=== PATIENT | male | born 1945 | race Caucasian/White ===

== ENCOUNTER 2018-10-22 19:38 | Inpatient (IN) | payer OTHER, MEDICARE ==
[~2018-10-22] VITALS: Ht 182.9 cm; Wt 110.5 kg
[~2018-10-22 19:38] MED LIST: ASPI325; ASPI325 PO; BUDE200IP IH; BUPR100; BUPR150ER PO; CALCAVITDA PO; CARB25; CEPH500 PO; DOXA4; FOLI1; GABA300; GALA4; GALA4 PO; HYDACE5; HYDACE5 PO; HYDSUL200 PO; INSUASPI SUBQ; LIDO5TP TOP; LORA.5 PO; LOSA25 PO; METF500; METH5; METO50; METPHE5; METTREX2.5; METTREX2.5 PO; MULVITMIND PO; NORT10 PO; NORT25 PO; NORT50; NYST100P TOP; SIMV40
[2018-10-22 20:33] LABS: BASOPHILS ABSOLUTE AUTO 0.01 K/mm3 (0.00-0.23); BASOPHILS PERCENT AUTO 0 % (0-2); EOSINOPHILS PERCENT AUTO 1 % (0-6); Hematocrit 38.6 % (37.0-53.0); Hemoglobin 12.2 g/dL (13.5-17.5); IMMATURE GRAN ABSOLUTE AUTO 0.06 K/mm3 (0.00-0.10); IMMATURE GRAN PERCENT AUTO 1 % (0-1); LYMPHOCYTES ABSOLUTE AUTO 0.57 K/mm3 (0.84-5.20); LYMPHOCYTES PERCENT AUTO 7 % (21-46); MONOCYTES ABSOLUTE AUTO 0.64 K/mm3 (0.16-1.47); MONOCYTES PERCENT AUTO 8 % (4-13); Mean Corpuscular HGB 28.9 pg (26.0-34.0); Mean Corpuscular HGB Conc 31.6 g/dL (31.5-36.5); Mean Corpuscular Volume 92 fL (80-100); Mean Platelet Volume 12.3 fL (9.1-12.4); NEUTROPHILS ABSOLUTE AUTO 7.06 K/mm3 (1.96-9.15); NEUTROPHILS PERCENT AUTO 84 % (41-73); Platelet Count 102 K/mm3 (150-400); RDW Coefficient Variation 13.9 % (11.7-14.2); RDW Standard Deviation 46.6 fL (35.1-46.3); Red Blood Cell Count 4.22 M/mm3 (4.30-5.90); White Blood Cell Count 8.44 K/mm3 (4.00-11.30)
[2018-10-22] MEDS ORDERED: ALBU3IS PO (20:45)
[2018-10-22] MEDS ORDERED: Advair Hfa 230-12 GM (20:50)
[2018-10-22] MEDS ORDERED: LIDO5TO (20:51)
[2018-10-22] MEDS ORDERED: PRED10 PO (20:56)
[2018-10-22 20:57] LABS: Alanine Aminotransfer (ALT/SGP 31 U/L (12-78); Albumin, Blood 2.6 g/dL (3.4-5.0); Albumin/Globulin Ratio 0.8 (0.8-1.8); Alk Phos 80 U/L (50-136); Anion Gap 8 mmol/L (6-16); Aspartate Aminotrans (AST/SGOT 23 U/L (12-37); Bilirubin, Total 0.5 mg/dL (0.1-1.0); Blood Urea Nitrogen 14 mg/dL (8-24); CO2, Blood 27 mmol/L (21-32); Chloride, Blood 106 mmol/L (98-108); Creatinine, Blood 1.08 mg/dL (0.60-1.20); Globulin, Blood 3.4 g/dL (2.2-4.0); Glomerular Filtration Rate >60 (60-); Glucose, Blood 217 mg/dL (70-99); Potassium, Blood 3.7 mmol/L (3.5-5.5); Sodium, Blood 141 mmol/L (136-145); Troponin I 0.158 ng/mL (0.000-0.040)
[2018-10-22] MEDS ORDERED: **INCOMPLETE MED REC (21:46)
[2018-10-22] MEDS ORDERED: ABAT250V SC (22:13)
[2018-10-22] MEDS ORDERED: ACET325S PO (22:14)
[2018-10-22] MEDS ORDERED: COMBIVENT RESPIM4 GM INH (22:16)
[2018-10-22] MEDS ORDERED: ATOR20 PO (22:18)
[2018-10-22] MEDS ORDERED: ASCO500 PO (22:18)
[2018-10-22] MEDS ORDERED: ELIQUIS5 MG PO (22:18)
[2018-10-22] MEDS ORDERED: BENZ100A PO (22:19)
[2018-10-22] MEDS ORDERED: BUSP10 PO (22:20)
[2018-10-22] MEDS ORDERED: CLON.1 PO (22:21)
[2018-10-22] MEDS ORDERED: CLOT10 PO (22:22)
[2018-10-22] MEDS ORDERED: Desowen60 GM TOP (22:24)
[2018-10-22] MEDS ORDERED: Ferrous Sulfat325 M2 PO (22:25)
[2018-10-22] MEDS ORDERED: Carac30 GM TOP (22:26)
[2018-10-22] MEDS ORDERED: Flonase 0.05% N16 GM (22:28)
[2018-10-22] MEDS ORDERED: FOLI1 PO (22:28)
[2018-10-22] MEDS ORDERED: GABA600 PO ×2 (22:29→22:30)
[2018-10-22 22:31] LABS: Influenza A Negative (NEGATIVE); Influenza B Negative (NEGATIVE)
[2018-10-22] MEDS ORDERED: INSULANPEN SC (22:31)
[2018-10-22] MEDS ORDERED: LIDOCAINE HCL120 GM TOP (22:34)
[2018-10-22] MEDS ORDERED: METO25 PO (22:35)
[2018-10-22] MEDS ORDERED: Hair, Skin & N1 EACH PO (22:35)
[2018-10-22] MEDS ORDERED: Ofloxacin5 M1 BOTHEYES (22:36)
[2018-10-22] MEDS ORDERED: OMEPRAZOLE MAGN20 MG PO (22:37)
[2018-10-22] MEDS ORDERED: OXYC5 PO (22:37)
[2018-10-22] MEDS ORDERED: PREDNISOLONE ACE5 ML BOTHEYES (22:38)
[2018-10-22] MEDS ORDERED: SENN187 PO (22:39)
[2018-10-22] MEDS ORDERED: TAMS.4ER PO (22:40)
[2018-10-22] MEDS ORDERED: THEO400ER PO (22:40)
[2018-10-22] MEDS ORDERED: VENL75ER PO (22:42)
[2018-10-22] MEDS ORDERED: Ultra Mide 25120 ML TOP (22:42)
[2018-10-23 04:19] LABS: Hematocrit 38.4 % (37.0-53.0); Hemoglobin 12.1 g/dL (13.5-17.5); Mean Corpuscular HGB 28.1 pg (26.0-34.0); Mean Corpuscular HGB Conc 31.5 g/dL (31.5-36.5); Mean Platelet Volume 12.3 fL (9.1-12.4); Platelet Count 92 K/mm3 (150-400); RDW Coefficient Variation 13.8 % (11.7-14.2); RDW Standard Deviation 45.3 fL (35.1-46.3); Red Blood Cell Count 4.31 M/mm3 (4.30-5.90); White Blood Cell Count 6.84 K/mm3 (4.00-11.30)
[2018-10-23 04:24] LABS: Mean Corpuscular Volume 89 fL (80-100)
[2018-10-23 04:55] LABS: Troponin I 0.146 ng/mL (0.000-0.040)
[2018-10-23 04:57] LABS: Alanine Aminotransfer (ALT/SGP 29 U/L (12-78); Albumin, Blood 2.6 g/dL (3.4-5.0); Albumin/Globulin Ratio 0.7 (0.8-1.8); Alk Phos 85 U/L (50-136); Anion Gap 10 mmol/L (6-16); Aspartate Aminotrans (AST/SGOT 23 U/L (12-37); Bilirubin, Total 0.7 mg/dL (0.1-1.0); Blood Urea Nitrogen 20 mg/dL (8-24); Bun/Creatinine Ratio 16.1 (12.0-20.0); CO2, Blood 27 mmol/L (21-32); Calcium, Blood 8.3 mg/dL (8.5-10.1); Chloride, Blood 105 mmol/L (98-108); Creatinine, Blood 1.24 mg/dL (0.60-1.20); Globulin, Blood 3.6 g/dL (2.2-4.0); Glomerular Filtration Rate >60 (60-); Glucose, Blood 335 mg/dL (70-99); Potassium, Blood 3.7 mmol/L (3.5-5.5); Sodium, Blood 142 mmol/L (136-145); Total Protein, Blood 6.2 g/dL (6.4-8.2)
--- NOTE | 2018-10-23 05:45 | NUR ---
SHIFT SUMMARY PT SLEEPING IN ROOM COMFORTABLY. NO ACUTE CHANGES IN STATUS SINCE ARRIVAL TO UNIT. DENIES ANY PAIN AFTER THIS TIME. PT WAS MEDICATED FOR NEUROPATHY PAIN IN BILATE GREAT TOES W/ TOPICAL OINTMENT. PT FAMILY REPORTS WILL BRING OWN OINTMENT FROM HOME TODAY. RESP EVEN AND UNLABORED IN 2.5L NC. W/ PROD COUGH. PT UNABLE TO OBTAIN SPUTUM SAMPLE AT THIS TIME HOWEVER. PT IS SBA, BUT DOES NOT CALL APPROPRIATELY FOR ASSIST. BED ALARM IN ON FOR SAFETY. CALL LIGHT IN REACH. PT REQUIRES REMINDING TO USE CALL LIGHT.
--- NOTE | 2018-10-23 08:53 | NUR ---
BEGINNING OF SHIFT Assumed care of pt at 0700. Report received from Melodie VELASCO. Pt on 3 LPM NC at time of report. Titrated to room air. Pt tolerated titration well and maintained O2 sats between 95% and 99% on room air. Pt's daughter called and wanted an update on the pt's condition. Pt gave verbal consent for this nurse to speak to the daughter. Nicotine patch applied to right shoulder. Pt states he has been working on smoking cessation and plans to complete this goal during this hospital stay. Bed alarm applied. Bed in lowest position. Call light in reach. Pt is medical floor status without telemetry at this time.
[2018-10-23 09:11] LABS: Adenovirus Not Detected (NOT DETECT); Bordetella pertussis Not Detected (NOT DETECT); Chlamydophila pneumoniae Not Detected (NOT DETECT); Coronavirus 229E Not Detected (NOT DETECT); Coronavirus HKU1 Not Detected (NOT DETECT); Coronavirus NL63 Not Detected (NOT DETECT); Coronavirus OC43 Not Detected (NOT DETECT); Human Metapneumovirus Not Detected (NOT DETECT); Human Rhinovirus/Enterovirus Not Detected (NOT DETECT); Influenza A Not Detected (NOT DETECT); Influenza A/2009-H1 Not Detected (NOT DETECT); Influenza A/H1 Not Detected (NOT DETECT); Influenza A/H3 Not Detected (NOT DETECT); Influenza B Not Detected (NOT DETECT); Mycoplasma pneumoniae Not Detected (NOT DETECT); Parainfluenza Virus 1 Not Detected (NOT DETECT); Parainfluenza Virus 2 Not Detected (NOT DETECT); Parainfluenza Virus 3 Not Detected (NOT DETECT); Parainfluenza Virus 4 Not Detected (NOT DETECT); Respiratory Syncytial Virus Not Detected (NOT DETECT)
--- NOTE | 2018-10-23 10:07 | NUR ---
echocardiogram completed
[2018-10-23 12:46] LABS: Troponin I 0.074 ng/mL (0.000-0.040)
--- NOTE | 2018-10-23 13:19 | NUR ---
CALL PLACED TO DR MENDIETA Call placed to Dr Mendieta at 1155 regarding results of CBG. No new orders given. This RN asked if provider would like a recheck before 1630. Proivder stated this would not be necessary.
--- NOTE | 2018-10-23 15:41 | NUR ---
TRANSFER TO MEDICAL FLOOR Pt transferred to room 313. Report called to medical floor nurse. Chart, medications, and belongings transferred with patient. This RN called pt's daughter to notify her of the transfer.
--- NOTE | 2018-10-23 20:38 | NUR ---
1530- PT TX FROM PCU 7 TO ROOM 313 AT 1525- A/O X4, VERBAL AND PLEASANT. ON ROOM AIR, 96%SATS, RESP EVEN AND UNLABORED. CONT TO HAVE SUGAR 400'S COVERED WITH MED SS INSULIN. DR WAS AWARE OF EARLIER SUGAR IN THE 400'S SO DIDN'T CALL- WILL SEE IF LONG ACTING CATCHES UP BY HS. NIGHT RN AWARE.
--- NOTE | 2018-10-24 04:53 | NUR ---
SHIFT SUMMARY THE PATIENT PRESENTED THIS SHIFT WAS ELEVATED B/P AND RECEIVED HYDRALAZINE PER ORDERES. THE PATIENT IS A&O X4, WITH LUNGS SOUNDS THAT WERE COARSE AND DIM AT THE BASES. THE PATIENT HAS ASKED FOR COUGH MEDICATION TWICE THIS SHIFT. THE PATIENT SETTLED DOWN AND WENT TO SLEEP AROUND MIDNIGHT. THE PATIENT IS SLEEPING AT THIS TIME, WILL CONTINUE TO MONITOR.
--- NOTE | 2018-10-24 10:05 | NUR ---
Pt gave [facility] permission to provide care 10/24/18.
--- NOTE | 2018-10-24 14:50 | NUR ---
CONTINUE HOME MEDICATION OF ORENICA UPON D/C PER DR. FUNG VERBAL ORDER.
[2018-10-24] MEDS ORDERED: Guaifenesin-Co118 ML PO (15:12)
[2018-10-24] MEDS ORDERED: Prednisone20 MG PO (15:13)
[2018-10-24] MEDS ORDERED: NICO21TP TOP (15:13)
[2018-10-24] MEDS ORDERED: FURO40 PO (15:16)
--- NOTE | 2018-10-24 18:34 | NUR ---
1540 PATIENT TO DISCHARGE HOME. IV REMOVED WITH NO SS OF INFECTION NOTED. NURSE WENT OVER NEW MEDS AND EDUCATED PATIENTS DAUGHTER REGARDING NEW MEDS. CALLED INTO PHARMACY OF CHOICE. PATIENT TAKEN DOWN BY WC TO CAR AND TAKEN HOME.
== END 2018-10-24 16:55 | disposition home or self-care (01) | DRG 291 ==
LOC: ER 19:38 → PCU 23:51 → MEDS 10-23 15:27
PROVIDERS: Emergency Medicine; ADMIT Internal Medicine
PROC: 5A09357 Assistance with Respiratory Ventilation, Less than 24 Consecutive Hours, Continuous Positive Airway Pressure (ICD-10-PCS; principal; 2018-10-22)
DX: I11.0 Hypertensive heart disease with heart failure (principal); J96.01 Acute respiratory failure with hypoxia; J44.1 Chronic obstructive pulmonary disease with (acute) exacerbation; I50.33 Acute on chronic diastolic (congestive) heart failure; N40.0 Benign prostatic hyperplasia without lower urinary tract symptoms; I25.10 Atherosclerotic heart disease of native coronary artery without angina pectoris; E11.9 Type 2 diabetes mellitus without complications; F32.9 Major depressive disorder, single episode, unspecified; I16.0 Hypertensive urgency; I35.0 Nonrheumatic aortic (valve) stenosis; K21.9 Gastro-esophageal reflux disease without esophagitis; M06.9 Rheumatoid arthritis, unspecified; Z88.0 Allergy status to penicillin; Z88.2 Allergy status to sulfonamides; F17.210 Nicotine dependence, cigarettes, uncomplicated; Z95.1 Presence of aortocoronary bypass graft; G47.33 Obstructive sleep apnea (adult) (pediatric); F43.10 Post-traumatic stress disorder, unspecified; Z91.19 Patient's noncompliance with other medical treatment and regimen; E78.5 Hyperlipidemia, unspecified; Z95.0 Presence of cardiac pacemaker
CPT/HCPCS: 36415; 71046; 80053; 82550; 82947; 83605; 83880; 84145; 84484; 85025; 85027; 87040; 87070; 87205; 87486; 87581; 87633; 87798; 87804; 93005; 93010; 93306; 94640; 94760; 96361; 96365; 99285-25; J0360; J0456; J0696; J1940; J2930; J7050; J7120

== ENCOUNTER 2018-11-13 22:37 | Emergency (ER) | payer OTHER, MEDICARE ==
[~2018-11-13] VITALS: Ht 177.8 cm; Wt 77.1 kg
[~2018-11-13 22:37] MED LIST changes: +**INCOMPLETE MED REC; +ABAT250V SC; +ACET325S PO; +ALBU3IS PO; +ASCO500 PO; +ATOR20 PO; +Advair Hfa 230-12 GM; +BENZ100A PO; +BUSP10 PO; +CLON.1 PO; +CLOT10 PO; +COMBIVENT RESPIM4 GM INH; +Carac30 GM TOP; +Desowen60 GM TOP; +ELIQUIS5 MG PO; +FOLI1 PO; +FURO40 PO; +Ferrous Sulfat325 M2 PO; +Flonase 0.05% N16 GM; +GABA600 PO; +Guaifenesin-Co118 ML PO; +Hair, Skin & N1 EACH PO; +INSULANPEN SC; +LIDO5TO; +LIDOCAINE HCL120 GM TOP; +METO25 PO; +NICO21TP TOP; +OMEPRAZOLE MAGN20 MG PO; +OXYC5 PO; +Ofloxacin5 M1 BOTHEYES; +PRED10 PO; +PREDNISOLONE ACE5 ML BOTHEYES; +Prednisone20 MG PO; +SENN187 PO; +TAMS.4ER PO; +THEO400ER PO; +Ultra Mide 25120 ML TOP; +VENL75ER PO
[2018-11-14 06:05] LABS: PCO2 Arterial 38.1 mmHg (35-45); PO2 Arterial 75.4 mmHg (80-100); pH Blood Arterial 7.42 (7.35-7.45)
[2018-11-14 06:35] LABS: Albumin, Blood 2.7 g/dL (3.4-5.0); Albumin/Globulin Ratio 0.9 (0.8-1.8); Bilirubin, Total 0.5 mg/dL (0.1-1.0); Calcium, Blood 7.8 mg/dL (8.5-10.1); Creatinine, Blood 1.37 mg/dL (0.60-1.20); Potassium, Blood 4.3 mmol/L (3.5-5.5); Total Protein, Blood 5.7 g/dL (6.4-8.2); Troponin I 0.058 ng/mL (0.000-0.040)
[2018-11-14 06:41] LABS: BASOPHILS ABSOLUTE AUTO 0.02 K/mm3 (0.00-0.23); BASOPHILS PERCENT AUTO 0 % (0-2); EOSINOPHILS ABSOLUTE AUTO 0.01 K/mm3 (0.00-0.68); EOSINOPHILS PERCENT AUTO 0 % (0-6); Hematocrit 36.9 % (37.0-53.0); Hemoglobin 12.2 g/dL (13.5-17.5); IMMATURE GRAN ABSOLUTE AUTO 0.26 K/mm3 (0.00-0.10); IMMATURE GRAN PERCENT AUTO 2 % (0-1); LYMPHOCYTES ABSOLUTE AUTO 0.37 K/mm3 (0.84-5.20); LYMPHOCYTES PERCENT AUTO 2 % (21-46); MONOCYTES ABSOLUTE AUTO 0.23 K/mm3 (0.16-1.47); MONOCYTES PERCENT AUTO 2 % (4-13); Mean Corpuscular HGB 29.3 pg (26.0-34.0); Mean Corpuscular HGB Conc 33.1 g/dL (31.5-36.5); Mean Corpuscular Volume 89 fL (80-100); Mean Platelet Volume 13.2 fL (9.1-12.4); NEUTROPHILS ABSOLUTE AUTO 14.25 K/mm3 (1.96-9.15); NEUTROPHILS PERCENT AUTO 94 % (41-73); Platelet Count 84 K/mm3 (150-400); RDW Standard Deviation 45.4 fL (35.1-46.3); Red Blood Cell Count 4.17 M/mm3 (4.30-5.90); White Blood Cell Count 15.14 K/mm3 (4.00-11.30)
== END 2018-11-14 03:52 | disposition home or self-care (01) ==
LOC: ER 22:37
PROVIDERS: Emergency Medicine
DX: J06.9 Acute upper respiratory infection, unspecified (principal)
CPT/HCPCS: 36600; 80053; 82803; 83605; 83880; 84484; 85025; 96374; 99285-25; J2543

== ENCOUNTER 2019-05-06 09:08 | Emergency (ER) | payer OTHER, MEDICARE ==
[~2019-05-06] VITALS: Ht 182.9 cm; Wt 113.4 kg
[2019-05-06] MEDS ORDERED: AMLO10 PO (09:40)
[2019-05-06] MEDS ORDERED: ALBU90OI INH (09:40)
[2019-05-06] MEDS ORDERED: CARV3.125 PO (09:41)
[2019-05-06] MEDS ORDERED: TRAZ50 PO (09:41)
== END 2019-05-06 11:38 | disposition home or self-care (01) ==
LOC: ER 09:08
DX: R04.0 Epistaxis (principal); E11.9 Type 2 diabetes mellitus without complications; I10 Essential (primary) hypertension; Z88.0 Allergy status to penicillin; Z88.2 Allergy status to sulfonamides; Z79.01 Long term (current) use of anticoagulants; Z79.899 Other long term (current) drug therapy; Z79.4 Long term (current) use of insulin
CPT/HCPCS: 99283

== ENCOUNTER 2019-06-23 00:31 | Emergency (ER) | payer MEDICARE ==
[~2019-06-23] VITALS: Ht 182.9 cm; Wt 113.4 kg
[~2019-06-23 00:31] MED LIST changes: +ALBU90OI INH; +AMLO10 PO; +CARV3.125 PO; +TRAZ50 PO
[2019-06-23] MEDS ORDERED: PANT20 PO (01:03)
[2019-06-23] MEDS ORDERED: CLOP75 PO (01:04)
[2019-06-23 02:20] LABS: Calcium, Ionized (POC) 1.19 mmol/L (1.10-1.46); Chloride (POC) 105 mmol/L (98-108); Creatinine (POC) 1.5 mg/dL (0.8-1.3); Glucose (ISTAT POC) 74 mg/dL (70-99); Hemoglobin (POC) 10.2 g/dL (13.5-17.5); Potassium (POC) 3.6 mmol/L (3.5-5.5); Sodium (POC) 142 mmol/L (135-148); Total CO2 (POC) 26 mmol/L (21-32)
== END 2019-06-23 04:19 | disposition home or self-care (01) ==
LOC: ER 00:31
PROVIDERS: Emergency Medicine
DX: H57.11 Ocular pain, right eye (principal); H54.61 Unqualified visual loss, right eye, normal vision left eye; I10 Essential (primary) hypertension; E11.9 Type 2 diabetes mellitus without complications; F17.200 Nicotine dependence, unspecified, uncomplicated; Z88.2 Allergy status to sulfonamides; Z88.0 Allergy status to penicillin; Z88.5 Allergy status to narcotic agent; Z79.899 Other long term (current) drug therapy; Z79.4 Long term (current) use of insulin; Z79.01 Long term (current) use of anticoagulants; Z79.02 Long term (current) use of antithrombotics/antiplatelets
CPT/HCPCS: 36415; 70480; 80047; 85014; 99284-25

== ENCOUNTER → 2020-04-19 | Outpatient (CLI) | payer MEDICARE ==
[~2020-04-19] MED LIST changes: -ABAT250V SC; +ACET325 PO; +AQUORAL10 ML MM; +BASAGLAR K100 UNIT/1 SC; +CLOP75 PO; -COMBIVENT RESPIM4 GM INH; +DOCU100 PO; +DOXY100 PO; +Duoneb 2.5-0.5 M3 ML INH; +Duoneb 2.5-0.5 M3 ML NEB; +FERSU300 PO; -Ferrous Sulfat325 M2 PO; +GABA300 PO; +Humalog100 UNIT/1 SC; +Keflex500 MG PO; +LIDOCAINE5 GM TOP; +Loratadine10 MG PO; +MELA3 PO; +NOVOLOG FL100 UNIT/3 SC; +Nicoderm Cq1 EAC1 TOP; +ONDA4ODT MM; +ORENCIA125 MG/1 M SC; +PANT40 PO; +POTCHL20ER PO; +PRINIVIL5 M1 PO; +Percocet 5-3251 EACH PO; +ROXICODONE5 MG PO; +SYMBICORT 160-4.6 GM INH; +XARELTO20 MG; +XARELTO20 MG PO
[2020-04-19 12:16] LABS: BASOPHILS ABSOLUTE AUTO 0.01 K/mm3 (0.00-0.23); BASOPHILS PERCENT AUTO 0 % (0-2); EOSINOPHILS ABSOLUTE AUTO 0.13 K/mm3 (0.00-0.68); EOSINOPHILS PERCENT AUTO 2 % (0-6); Hematocrit 31.9 % (37.0-53.0); Hemoglobin 9.5 g/dL (13.5-17.5); IMMATURE GRAN ABSOLUTE AUTO 0.02 K/mm3 (0.00-0.10); IMMATURE GRAN PERCENT AUTO 0 % (0-1); LYMPHOCYTES ABSOLUTE AUTO 1.23 K/mm3 (0.84-5.20); LYMPHOCYTES PERCENT AUTO 23 % (21-46); MONOCYTES PERCENT AUTO 9 % (4-13); Mean Corpuscular HGB 26.2 pg (26.0-34.0); Mean Corpuscular HGB Conc 29.8 g/dL (31.5-36.5); Mean Corpuscular Volume 88 fL (80-100); Mean Platelet Volume 12.6 fL (9.1-12.4); NEUTROPHILS ABSOLUTE AUTO 3.55 K/mm3 (1.96-9.15); NEUTROPHILS PERCENT AUTO 65 % (41-73); Platelet Count 105 K/mm3 (150-400); RDW Coefficient Variation 16.2 % (11.7-14.2); RDW Standard Deviation 52.8 fL (35.1-46.3); Red Blood Cell Count 3.63 M/mm3 (4.30-5.90); White Blood Cell Count 5.44 K/mm3 (4.00-11.30)
[2020-04-19 12:23] LABS: Bun/Creatinine Ratio 17.4 (12.0-20.0); Calcium, Blood 8.3 mg/dL (8.5-10.1); Creatinine, Blood 1.32 mg/dL (0.60-1.20); Potassium, Blood 3.8 mmol/L (3.5-5.5)
== END | disposition home or self-care (01) ==
LOC: LAB RH 10:59 → EDSTATUS 15:34
PROVIDERS: Family Medicine
DX: E11.22 Type 2 diabetes mellitus with diabetic chronic kidney disease (principal); N18.3 Chronic kidney disease, stage 3 (moderate); I50.9 Heart failure, unspecified
CPT/HCPCS: 80048; 85025

== ENCOUNTER 2020-05-02 17:00 | Inpatient (IN) | payer OTHER, MEDICARE ==
[~2020-05-02] VITALS: Ht 182.9 cm; Wt 90.8 kg
[~2020-05-02 17:00] MED LIST changes: -AQUORAL10 ML MM; -DOXY100 PO; -LIDOCAINE5 GM TOP; -Percocet 5-3251 EACH PO; -ROXICODONE5 MG PO; -XARELTO20 MG; -XARELTO20 MG PO
[2020-05-02 17:39] LABS: BASOPHILS ABSOLUTE AUTO 0.01 K/mm3 (0.00-0.23); BASOPHILS PERCENT AUTO 0 % (0-2); EOSINOPHILS ABSOLUTE AUTO 0.17 K/mm3 (0.00-0.68); EOSINOPHILS PERCENT AUTO 3 % (0-6); Hematocrit 31.4 % (37.0-53.0); Hemoglobin 9.4 g/dL (13.5-17.5); IMMATURE GRAN ABSOLUTE AUTO 0.02 K/mm3 (0.00-0.10); IMMATURE GRAN PERCENT AUTO 0 % (0-1); LYMPHOCYTES ABSOLUTE AUTO 1.12 K/mm3 (0.84-5.20); LYMPHOCYTES PERCENT AUTO 17 % (21-46); MONOCYTES ABSOLUTE AUTO 0.63 K/mm3 (0.16-1.47); MONOCYTES PERCENT AUTO 9 % (4-13); Mean Corpuscular HGB 26.3 pg (26.0-34.0); Mean Corpuscular HGB Conc 29.9 g/dL (31.5-36.5); Mean Corpuscular Volume 88 fL (80-100); Mean Platelet Volume 12.8 fL (9.1-12.4); NEUTROPHILS ABSOLUTE AUTO 4.83 K/mm3 (1.96-9.15); NEUTROPHILS PERCENT AUTO 71 % (41-73); Platelet Count 136 K/mm3 (150-400); RDW Standard Deviation 48.4 fL (35.1-46.3); Red Blood Cell Count 3.57 M/mm3 (4.30-5.90); White Blood Cell Count 6.78 K/mm3 (4.00-11.30)
[2020-05-02 17:48] LABS: Bun/Creatinine Ratio 19.2 (12.0-20.0); Creatinine, Blood 1.25 mg/dL (0.60-1.20); Potassium, Blood 4.5 mmol/L (3.5-5.5)
[2020-05-02 22:00] LABS: International Normalized Ratio 1.05; Prothrombin Time Results 11.2 Sec (9.7-11.5)
[2020-05-02 22:19] LABS: Creatine Kinase MB 1.9 ng/mL (0.0-3.6); Creatine Kinase MB Index 6.3 (0.0-4.0)
--- NOTE | 2020-05-03 00:04 | NUR ---
ARRIVAL TO UNIT. PT ARRIVED VIA GURNEY AT APPROX 2250, SLIDE TO BED WITH ASSIST. PT AA0X4, HELPING WITH REPOSITIONING. ABLE TO LIFT SELF WELL USING R FOOT. DENIES PAIN AT THIS TIME EXCEPT WHEN UPPER R CALF IS PALPATED. NO REDNESS NOTED ON CALF. FOOT AND CALF WERE WARM TO TOUCH. STUMP SOCK IN PLACE ON LLE DRESSING CHANGED OVER SMALL SORE AT THE END OF THE STUMP. SCATTERED BRUISING T/O PT REPORTS NORMAL. DR NERI IN TO SEE PT AT APPROX 1130. AWAITING ORDERS AND WILL ADMINISTER DIRECTED. PT ORIENTED TO UNIT CALL LIGHT IN REACH. CURRENTLY RESTING IN LOWER FOWLERS.
--- NOTE | 2020-05-03 04:40 | NUR ---
SHIFT SUMMARY NO ACUTE CHANGES SINCE ARRIVAL TO UNIT. PT HAS DENIED PAIN IN CALF AND FOOT EXCEPT ON PALPATION. PT HAS BEEN REPOSITIONING SELF IN BED FREQUENTLY. USES CALL LIGHT APPROPRIATLY. TOLERATING PO. NO NAUSEA DURING SHIFT. NO NEW DRAINAGE SEEN ON EITHER WOUND. PT HAS BEEN SLEEPING IN BED DURING SHIFT. IV FLUIDS AND ABX INFUSING PER EMAR. PLAN IS FOR VENOUS DUPLEX OF RLE IN THE AM AND TO CONTINUE ABX.
[2020-05-03 05:30] LABS: BASOPHILS ABSOLUTE AUTO 0.01 K/mm3 (0.00-0.23); BASOPHILS PERCENT AUTO 0 % (0-2); EOSINOPHILS ABSOLUTE AUTO 0.19 K/mm3 (0.00-0.68); EOSINOPHILS PERCENT AUTO 4 % (0-6); Hematocrit 29.6 % (37.0-53.0); Hemoglobin 8.9 g/dL (13.5-17.5); IMMATURE GRAN ABSOLUTE AUTO 0.01 K/mm3 (0.00-0.10); IMMATURE GRAN PERCENT AUTO 0 % (0-1); LYMPHOCYTES ABSOLUTE AUTO 1.12 K/mm3 (0.84-5.20); LYMPHOCYTES PERCENT AUTO 21 % (21-46); MONOCYTES ABSOLUTE AUTO 0.52 K/mm3 (0.16-1.47); MONOCYTES PERCENT AUTO 10 % (4-13); Mean Corpuscular HGB 26.6 pg (26.0-34.0); Mean Corpuscular HGB Conc 30.1 g/dL (31.5-36.5); Mean Corpuscular Volume 88 fL (80-100); Mean Platelet Volume 12.7 fL (9.1-12.4); NEUTROPHILS PERCENT AUTO 66 % (41-73); Platelet Count 125 K/mm3 (150-400); RDW Standard Deviation 48.8 fL (35.1-46.3); Red Blood Cell Count 3.35 M/mm3 (4.30-5.90); White Blood Cell Count 5.45 K/mm3 (4.00-11.30)
[2020-05-03 05:53] LABS: Albumin, Blood 2.3 g/dL (3.4-5.0); Albumin/Globulin Ratio 0.7 (0.8-1.8); Bilirubin, Total 0.4 mg/dL (0.1-1.0); Bun/Creatinine Ratio 15.4 (12.0-20.0); Calcium, Blood 8.4 mg/dL (8.5-10.1); Creatinine, Blood 1.43 mg/dL (0.60-1.20); Globulin, Blood 3.4 g/dL (2.2-4.0); Potassium, Blood 4.3 mmol/L (3.5-5.5); Total Protein, Blood 5.7 g/dL (6.4-8.2)
--- NOTE | 2020-05-03 06:32 | NUR ---
SPOKE TO DTR ON PHONE WHO STATED SHE IS ONE OF [facility] PRIMARY CAREGIVERS, PT CONFIRMED THAT DTR HELPS WITH MAJORITY OF HIS MEDICAL CARE. PT AND DTR BOTH EXPRESSED DESIRE TO BE PRESENT TO SPEAK WITH DOCTOR CONCERNING THE PATIENTS PLAN OF CARE AND ANY CHANGES TO MEDICAL CARE. DTR EXPRESSED CONCERN ABOUT MEDICATION ORDERS RECEIVED UPON DISCHARGE FROM PREVIOUS HOSPITAL STAY AND WISHES TO SPEAK WITH DOCTOR ABOUT PTS MEDICATIONS. WILL PASS ON TO ONCOMING SHIFT TO CALL [facility] FOR [facility], AND SPOKE TO CHARGE NURSE R/T DTR AND PT'S WISHES TO BE PRESENT FOR MEDICAL DECISIONS.
[2020-05-03] MEDS ORDERED: LIDOCAINE5 GM TOP (14:42)
[2020-05-03] MEDS ORDERED: MELA3 PO (14:42)
[2020-05-03] MEDS ORDERED: Percocet 5-3251 EACH PO (14:43)
[2020-05-03] MEDS ORDERED: AQUORAL10 ML MM (14:45)
--- NOTE | 2020-05-03 17:38 | NUR ---
SHIFT SUMMARY MEDICATED FOR PAIN IN RIGHT ANKLE/GREAT TOE X1 THIS SHIFT. PT HAS BEEN SLEEPING A LOT OF THE SHIFT. BLOOD SUGARS WITHIN NORMAL RANGE. BAG OF IVF INFUSED AND PT SALINE LOCKED NOW. PT UP TO BS WITH ONE ASSIST AND FWW/GAIT BELT. PT TOLERATED WELL. DRESSING TO LEFT STUMP INTACT. RIGHT GREAT TOE WITH WOUND THAT IS DRY. DR. COLLINS INTO SEE PT THIS AFTERNOON AND PLANS TO DO SUGERY AND AMPUTATE TOE TOMORROW. PT TO BE NPO AFTER MIDNIGHT. PT IS AWARE. NO ACUTE CHANGES AT THIS TIME. CALL LIGHT IN REACH. WILL CONTINUE TO MONITOR AND REPORT TO ONCOMING RN.
--- NOTE | 2020-05-03 23:11 | NUR ---
CALL TO HOSPITALIST: RECEIVED CALL FROM LAB STATING 1 BOTTLE FROM BLOOD CULTURE SET GROWING GRAM POSITIVE COCCI IN CLUSTERS. PT CURRENTLY ON CLEOCIN IV Q8HRS. INFORMED ISTRATE OF ABOVE INFO. NO NEW ORDERS AT THIS TIME.
--- NOTE | 2020-05-04 05:59 | NUR ---
SHIFT SUMMARY: VSS. AFEB. AAOX3. COMMUNICATES NEEDS. REMAINS IN BED. USES URINAL NEEDED. L STUMP W/DRESSING CDI. R GRT TOE WOUND W/ERYTHEMA, DRY, LASHAWN, PAINFUL TO TOUCH. ABT INFUSED ORDERED. NO ACUTE CHANGES TONIGHT. WILL CONT TO MONITOR.
[2020-05-04 06:12] LABS: Hematocrit 28.7 % (37.0-53.0); Hemoglobin 8.7 g/dL (13.5-17.5)
[2020-05-04 06:26] LABS: Albumin, Blood 2.4 g/dL (3.4-5.0); Anion Gap 4 mmol/L (6-16); Blood Urea Nitrogen 18 mg/dL (8-24); Bun/Creatinine Ratio 13.2 (12.0-20.0); CO2, Blood 28 mmol/L (21-32); Calcium, Blood 8.4 mg/dL (8.5-10.1); Chloride, Blood 111 mmol/L (98-108); Creatinine, Blood 1.36 mg/dL (0.60-1.20); Glomerular Filtration Rate 54 (60-); Glucose, Blood 76 mg/dL (70-99); Phosphorus, Blood 3.4 mg/dL (2.5-4.9); Potassium, Blood 4.2 mmol/L (3.5-5.5); Sodium, Blood 143 mmol/L (136-145)
--- NOTE | 2020-05-04 15:13 | NUR ---
XARELTO/PLAVIX DR. COLLINS WAS NOTIFIED THAT PT RECEIVED XARELTO YESTERDAY EVENING AND DR. COLLINS PLANS TO DO SURGERY TODAY. DR. COLLINS DID ORDER TO HOLD PLAVIX AND XARELTO UNTIL TOMORROW 05/05/20. WILL CONTINUE TO MONITOR.
--- NOTE | 2020-05-04 18:34 | NUR ---
SHIFT SUMMARY PT HAS BEEN NPO, WAITING FOR SURGERY THIS SHIFT. PT HAS HAD NO COMPLAINTS OF PAIN. PT DID HAVE BLOOD SUGAR OF 59 THIS EVENING. 1 AMP DEXTROSE ADMINISTERED PER DR. ROME'S ORDERS. PT WAS AWAKE AND TALKING. PT'S BLOOD SUGAR NOW 142. NO ACUTE CHANGES THIS SHIFT. CALL LIGHT IN REACH. WILL CONTINUE TO MONITOR AND REPORT TO ONCOMING RN.
--- NOTE | 2020-05-04 19:54 | NUR ---
Surgical nurse here to take pt to surgery for toe amputation. Daughter notified (pt voiced ok with it prior to notification). Pt alert and oriented. call light ws in reach prior to leaving for surgery.
--- NOTE | 2020-05-04 20:25 | NUR ---
05/04/202024 Megan Melton PT ON SCHEDULED ANTIBIOTICS
--- NOTE | 2020-05-04 21:15 | NUR ---
PT AWAKENS AND REMOVES HIS OWN AIRWAY DEVICE. ALERT AND ORIENTED. SOMEWHAT DISORIENTED SECONDARY TO WHERE HE IS AND HE BELIEVED HE WAS STILL TO HAVE SURGERY. REORIENTED PT. WILL CONTINUE TO MONITOR. PT 100 PERCENT V-PACED.
--- NOTE | 2020-05-04 22:07 | NUR ---
CUSTOMER QUALITY SPECIALIST REPORTED PT WENT THROUGH SURGERY WITHOUT COMPLICATIONS. ALERT AND ORIENTED X 4. RECOVERY WENT WELL. RN VOICED PT WAS ALSO POSITIVE FOR VRE. ARRIVED ON FLOOR AT THIS TIME, ALERT AND ORIENTED. NO C/O VOICED OTHER THAN HE WANTS TO EAT. CALL LIGHT IN REACH. ISOLATION PRECAUTIONS MAINTAINED.
--- NOTE | 2020-05-04 22:07 | NUR ---
REPORT CALLED TO ROD MCDOWELL. REPORT GIVEN. PT LEAVES ICU PACU AT 2200 IN STABLE CONDITION. ONLY COMPLAINT VOICED IS THAT HE WAS WANTING A TOASTED CHEESE SANDWHICH BECAUSE HE WAS HUNGRY.
--- NOTE | 2020-05-05 05:11 | NUR ---
SHIFT SUMMARY WENT TO SURGERY FOR RIGHT GREAT TOE AMPUTATION SOON AFTER SHIFT COMMENCE. LATER, RN IN ICU CALLED POST OP RECOVERY WITHOUT COMPLICATIONS. HAS BEEN RESTING QUIETLY WITH FEW INTERRUPTIONS. RECEIVED ANALGESIC X 2 SINCE RETURNING TO THE FLOOR. VSS. VOICED SLIGHT CHEST PAIN X 1, WHICH QUICKLY DISIPATED EARLIER IN THE SHIFT. NO NOTED DISCOMFORT SINCE HAVING RECEIVED ANALGESIC. SEE MAR FOR DETAILS. CALL LIGHT IN [facility]. ISOLATION PRECAUTIONS CONTINUE.
[2020-05-05 06:18] LABS: BASOPHILS ABSOLUTE AUTO 0.02 K/mm3 (0.00-0.23); BASOPHILS PERCENT AUTO 0 % (0-2); EOSINOPHILS ABSOLUTE AUTO 0.13 K/mm3 (0.00-0.68); EOSINOPHILS PERCENT AUTO 3 % (0-6); Hematocrit 27.9 % (37.0-53.0); Hemoglobin 8.4 g/dL (13.5-17.5); IMMATURE GRAN ABSOLUTE AUTO 0.01 K/mm3 (0.00-0.10); IMMATURE GRAN PERCENT AUTO 0 % (0-1); LYMPHOCYTES ABSOLUTE AUTO 0.94 K/mm3 (0.84-5.20); LYMPHOCYTES PERCENT AUTO 18 % (21-46); MONOCYTES ABSOLUTE AUTO 0.52 K/mm3 (0.16-1.47); MONOCYTES PERCENT AUTO 10 % (4-13); Mean Corpuscular HGB Conc 30.1 g/dL (31.5-36.5); Mean Corpuscular Volume 86 fL (80-100); Mean Platelet Volume 12.5 fL (9.1-12.4); NEUTROPHILS ABSOLUTE AUTO 3.65 K/mm3 (1.96-9.15); NEUTROPHILS PERCENT AUTO 69 % (41-73); Platelet Count 117 K/mm3 (150-400); RDW Coefficient Variation 14.8 % (11.7-14.2); RDW Standard Deviation 47.1 fL (35.1-46.3); Red Blood Cell Count 3.23 M/mm3 (4.30-5.90); White Blood Cell Count 5.27 K/mm3 (4.00-11.30)
[2020-05-05 06:35] LABS: Albumin, Blood 2.3 g/dL (3.4-5.0); Anion Gap 6 mmol/L (6-16); Blood Urea Nitrogen 20 mg/dL (8-24); CO2, Blood 27 mmol/L (21-32); Calcium, Blood 8.1 mg/dL (8.5-10.1); Chloride, Blood 109 mmol/L (98-108); Creatinine, Blood 1.33 mg/dL (0.60-1.20); Glomerular Filtration Rate 56 (60-); Glucose, Blood 77 mg/dL (70-99); Phosphorus, Blood 3.9 mg/dL (2.5-4.9); Potassium, Blood 3.9 mmol/L (3.5-5.5); Sodium, Blood 142 mmol/L (136-145)
--- NOTE | 2020-05-05 07:06 | NUR ---
CBG THIS AM WAS 74. PUDDING GIVEN. AM NURSE TO FOLLOW UP. CALL LIGHT IN REACH.
--- NOTE | 2020-05-05 18:20 | NUR ---
SHIFT SUMMARY MEDICATED SEVERAL TIMES FOR RIGHT FOOT PAIN THIS SHIFT. MEDICATIONS CHANGED TO IV DILAUDID AND PT REPORTS PT GOES TO A 0/10 AFTER RECEIVING IT. DRESSING TO RIGHT FOOT IN PLACE WITH NO BLEEDING NOTED. BLOOD SUGARS WNL. PT HAS HAD NO FURTHER COMPLAINTS. GOOD APPETITE. NO ACUTE CHANGES THIS SHIFT. CALL LIGHT IN REACH. WILL CONTINUE TO MONITOR AND REPORT TO ONCOMING RN.
--- NOTE | 2020-05-06 04:23 | NUR ---
SUMMARY PT HAD NO ISSUES NOTED. PT MEDICATED PER EMAR FOR DISCOMFORT. PT HAS BEEN SLEEPING WELL T/O SHIFT. PT HAS BEEN VOIDING WELL W/ URINAL. PT CURRENTLY SLEEPING AND IN NO DISTRESS. CALL LIGHT IN REACH.
--- NOTE | 2020-05-06 17:56 | NUR ---
PT AOX4 AND COOPERATIVE OF CARE. PT DOING WELL TREATED FOR R GREAT TOE PAIN PER EMAR. PT CALLS APPROPRIATELY AND IS PLEASANT. PT ABLE TO MOVE HIMSELF AROUND IN BED WELL. R FOOT BANDAGE IN PLACE DR COLLINS TO MONITOR AND CHANGE. CALL LIGHT WITHIN REACH AND BED IN LOWEST POSITION.
--- NOTE | 2020-05-07 04:17 | NUR ---
SUMMARY PT PAIN HAS BEEN MANAGED WELL T/O SHIFT. PT HAS SLEPT T/O SHIFT. PT CURRENTLY SLEEPING IN NO DISTRESS. PT VOIDING WELL. CALL LIGHT IN REACH.
--- NOTE | 2020-05-07 18:15 | NUR ---
PT AOX4 AND COOPERATIVE OF CARE. PT CONTINUES TO HAVE PAIN DUE TO R GREAT TOE AMPUTATION AND IS TREATED PER EMAR. DR COLLINS STOPPED IN AND CHECKED ON R FOOT STATING PT'S FOOT LOOKS TO BE DOING WELL. PT ALSO WORKED WITH PHYSICAL THERAPY AND WAS ABLE TO STAND ON FOOT TODAY WITH BOOT ON. PT DOING WELL AND REALY MAKES A GOOD EFFORT MOVING IN BED. CALL LIGHT WITHIN REACH NO DISTRESS NOTED.
--- NOTE | 2020-05-08 03:46 | NUR ---
SUMMARY NO CX PAIN REPORTED. PT RESTED COMFORTABLY MOST OF SHIFT. PAIN MANAGED PER EMAR. PT CURRENTLY SLEEPING AND BREATHING EASY. PT VOIDING WELL. CALL LIGHT IN REACH.
[2020-05-08 05:44] LABS: BASOPHILS ABSOLUTE AUTO 0.01 K/mm3 (0.00-0.23); BASOPHILS PERCENT AUTO 0 % (0-2); EOSINOPHILS ABSOLUTE AUTO 0.22 K/mm3 (0.00-0.68); EOSINOPHILS PERCENT AUTO 3 % (0-6); Hematocrit 27.5 % (37.0-53.0); Hemoglobin 8.2 g/dL (13.5-17.5); IMMATURE GRAN ABSOLUTE AUTO 0.02 K/mm3 (0.00-0.10); IMMATURE GRAN PERCENT AUTO 0 % (0-1); LYMPHOCYTES ABSOLUTE AUTO 0.87 K/mm3 (0.84-5.20); LYMPHOCYTES PERCENT AUTO 13 % (21-46); MONOCYTES ABSOLUTE AUTO 0.49 K/mm3 (0.16-1.47); MONOCYTES PERCENT AUTO 7 % (4-13); Mean Corpuscular HGB 25.9 pg (26.0-34.0); Mean Corpuscular HGB Conc 29.8 g/dL (31.5-36.5); Mean Corpuscular Volume 87 fL (80-100); Mean Platelet Volume 11.9 fL (9.1-12.4); NEUTROPHILS PERCENT AUTO 76 % (41-73); Platelet Count 105 K/mm3 (150-400); RDW Standard Deviation 48.2 fL (35.1-46.3); Red Blood Cell Count 3.16 M/mm3 (4.30-5.90); White Blood Cell Count 6.61 K/mm3 (4.00-11.30)
[2020-05-08 06:00] LABS: Albumin, Blood 2.3 g/dL (3.4-5.0); Anion Gap 6 mmol/L (6-16); Blood Urea Nitrogen 24 mg/dL (8-24); Bun/Creatinine Ratio 16.8 (12.0-20.0); CO2, Blood 26 mmol/L (21-32); Calcium, Blood 7.9 mg/dL (8.5-10.1); Chloride, Blood 105 mmol/L (98-108); Creatinine, Blood 1.43 mg/dL (0.60-1.20); Glomerular Filtration Rate 51 (60-); Glucose, Blood 61 mg/dL (70-99); Phosphorus, Blood 3.9 mg/dL (2.5-4.9); Potassium, Blood 4.1 mmol/L (3.5-5.5); Sodium, Blood 137 mmol/L (136-145)
--- NOTE | 2020-05-08 17:46 | NUR ---
PT IA A/OX3, PLEASANT AND COOPERATIVE, THE PT WAS UP WITH THE PHYSICAL THERAPIST, SINCE THEN THE PT HAS BEEN BEDREST WITH RIGHT FOOT ELEVATED ON PILLOWS, THE PT DECLINED TO GET UP FOR DINNER AFTER AGRREING TO EARLIER, THE PT APPEARS TO BE BREATHING EASILY ON RA, THE PT WAS MEDICATED FOR PAIN T/O THE DAY, THE PT COMPLAINED OF SHOULDER PAINS MOSTLY, THE PT DENIED ANY CHEST PAIN T/O THE DAY, PTS WOUND DRESSING APPEARS TO BE C/D/I, CALL LIGHT IN REACH, THE PT HAD FAMILY IN TO VISIT TODAY
--- NOTE | 2020-05-08 22:27 | NUR ---
FEW COMPLAINTS VOICED. JOKED WITH STAFF DURING CHANGE OF BRIEFS. PADDED DRESSING APPLIED TO COCCYX AREA FOR COMFORT HE WAS VOICING THAT IT WAS HURTING SOME. NO NOTED OPENING OTHER THAN A SMALL SCRATCH. CALL LIGHT IN REACH. ISOLATION PRECAUTIONS CONTINUE.
--- NOTE | 2020-05-09 04:51 | NUR ---
HAS BEEN RESTING QUIETLY WITH EFW INTERRUPTIONS THIS SHIFT. ISOLATION PRECAUTIONS MAINTAINED. CALL LIGHT IN REACH
[2020-05-09 07:48] LABS: Albumin, Blood 2.3 g/dL (3.4-5.0); Anion Gap 7 mmol/L (6-16); Blood Urea Nitrogen 26 mg/dL (8-24); Bun/Creatinine Ratio 17.4 (12.0-20.0); CO2, Blood 24 mmol/L (21-32); Calcium, Blood 8.5 mg/dL (8.5-10.1); Chloride, Blood 106 mmol/L (98-108); Creatinine, Blood 1.49 mg/dL (0.60-1.20); Glomerular Filtration Rate 49 (60-); Glucose, Blood 93 mg/dL (70-99); Phosphorus, Blood 3.2 mg/dL (2.5-4.9); Potassium, Blood 4.3 mmol/L (3.5-5.5); Sodium, Blood 137 mmol/L (136-145)
--- NOTE | 2020-05-09 17:35 | NUR ---
SHIFT SUMMARY PATIENT AX2 THIS SHIFT. PATIENT STATES HE IS SEEING CATS IN THE ROOM AND STATES THAT HE KNOWS THAT IT IS HIS IMAGINATION. PATIENT'S DAUGHTER STATES THAT HE HAS THIS REACTION TO PAIN MEDICATIONS OR STRESS. PATIENT FORGETFUL OF LOCATION. PATIENT COOPERATIVE WITH CARE AND WORKING WITH OT THIS SHIFT. PATIENT LAYING IN BED MOST OF THIS SHIFT, UP IN THE CHAIR FOR LUNCH. PATIENT USES THE URINAL APPROPRIATELY. PATIENT CURRENTLY SITTING UP IN BED WATCHING TELEVISION.
--- NOTE | 2020-05-09 22:36 | NUR ---
ASSISTED TO BEDSIDE COMMODE EARLIER, UNSTEADY BUT USES WALKER WELL. TOLERATED HS MEDS WELL, REQUESTED AND RECEIVED ANALGESIC, DRESSING OF RIGHT FOOT CDI. RESTING QUIETLY AT THIS TIME. CALL LOGHT IN REACH
--- NOTE | 2020-05-10 03:34 | NUR ---
SHIFT SUMMARY HAS BEEN RESTING QUIETLY WITH EFW INTERRUPTIONS. IVF AT O, ANTIBIOTICS ADMINISTERED PER SCHEDULE - SEE MAR FOR DETAILS. DRESSING OF RIGHT FOOT CDI. WAS ASSISTED TO COMMODE X 1. NO NOTED DISTRESS AT THIS TIME. CALL LIGHT IN REACH
[2020-05-10] MEDS ORDERED: GABA300 PO (16:16)
[2020-05-10] MEDS ORDERED: ROXICODONE5 MG PO (16:21)
[2020-05-10] MEDS ORDERED: BUSP10 PO (16:22)
[2020-05-10] MEDS ORDERED: DOXY100 PO (16:23)
[2020-05-10] MEDS ORDERED: CARV3.125 PO (16:23)
[2020-05-10] MEDS ORDERED: BASAGLAR K100 UNIT/1 SC (16:24)
[2020-05-10] MEDS ORDERED: XARELTO20 MG PO (16:24)
[2020-05-10] MEDS ORDERED: XARELTO20 MG (16:24)
--- NOTE | 2020-05-10 18:07 | NUR ---
DISCHARGE NOTE PATIENT ALERT AND ORIENTED THROUGHOUT THIS SHIFT. PATIENT DISCHARGED TO [facility]. IV REMOVED PRIOR TO DISCHARGE. PATIENT TRANSPORTED BY [facility]. DRESSINGS C/D/I UPON DISCHARGE. PATIENT TRANSPORTED VIA WHEELCHAIR VAN.
== END 2020-05-10 18:16 | DRG 617 ==
LOC: ER 17:00 → MEDS 17:01
PROVIDERS: Emergency Medicine; Internal Medicine; Podiatrist Foot & Ankle Surgery; ADMIT Internal Medicine
PROC: 0Y6P0Z3 Detachment at Right 1st Toe, Low, Open Approach (ICD-10-PCS; principal; 2020-05-04 09:45)
DX: E11.69 Type 2 diabetes mellitus with other specified complication (principal); I13.0 Hypertensive heart and chronic kidney disease with heart failure and stage 1 through stage 4 chronic kidney disease, or unspecified chronic kidney disease; M86.171 Other acute osteomyelitis, right ankle and foot; I50.32 Chronic diastolic (congestive) heart failure; E11.22 Type 2 diabetes mellitus with diabetic chronic kidney disease; E11.51 Type 2 diabetes mellitus with diabetic peripheral angiopathy without gangrene; N18.3 Chronic kidney disease, stage 3 (moderate); Z79.4 Long term (current) use of insulin; D63.1 Anemia in chronic kidney disease; L03.031 Cellulitis of right toe; I48.0 Paroxysmal atrial fibrillation; Z79.01 Long term (current) use of anticoagulants; Z95.2 Presence of prosthetic heart valve; N40.1 Benign prostatic hyperplasia with lower urinary tract symptoms; D69.6 Thrombocytopenia, unspecified; Z87.820 Personal history of traumatic brain injury; M06.9 Rheumatoid arthritis, unspecified; C76.0 Malignant neoplasm of head, face and neck; K21.9 Gastro-esophageal reflux disease without esophagitis; F43.10 Post-traumatic stress disorder, unspecified
CPT/HCPCS: 36415; 73590; 73630; 80048; 80053; 80069; 82550; 82553; 82947; 83605; 85014; 85018; 85025; 85610; 85651; 85730; 86140; 87040; 88305; 88311; 93971; 94640; 94760; 96365-59; 96366; 96367; 96376; 97110; 97162; 97166; 97530; 99284-25; A9270; A9270-GY; G0378; J1170; J2543; J2704; J3010; J3370; J7030; J7050; U0002

== ENCOUNTER → 2020-05-11 | Outpatient (CLI) | payer MEDICARE ==
[~2020-05-11] MED LIST changes: +AQUORAL10 ML MM; +DOXY100 PO; +LIDOCAINE5 GM TOP; +Percocet 5-3251 EACH PO; +ROXICODONE5 MG PO; +XARELTO20 MG; +XARELTO20 MG PO
[2020-05-11 21:56] LABS: BASOPHILS ABSOLUTE AUTO 0.02 K/mm3 (0.00-0.23); BASOPHILS PERCENT AUTO 0 % (0-2); EOSINOPHILS ABSOLUTE AUTO 0.15 K/mm3 (0.00-0.68); EOSINOPHILS PERCENT AUTO 1 % (0-6); Hemoglobin 6.8 g/dL (13.5-17.5); IMMATURE GRAN ABSOLUTE AUTO 0.05 K/mm3 (0.00-0.10); IMMATURE GRAN PERCENT AUTO 0 % (0-1); LYMPHOCYTES ABSOLUTE AUTO 1.29 K/mm3 (0.84-5.20); LYMPHOCYTES PERCENT AUTO 11 % (21-46); MONOCYTES ABSOLUTE AUTO 1.09 K/mm3 (0.16-1.47); MONOCYTES PERCENT AUTO 9 % (4-13); Mean Corpuscular HGB Conc 30.9 g/dL (31.5-36.5); Mean Corpuscular Volume 84 fL (80-100); Mean Platelet Volume 12.8 fL (9.1-12.4); NEUTROPHILS ABSOLUTE AUTO 9.54 K/mm3 (1.96-9.15); NEUTROPHILS PERCENT AUTO 79 % (41-73); Platelet Count 204 K/mm3 (150-400); RDW Coefficient Variation 15.1 % (11.7-14.2); RDW Standard Deviation 46.5 fL (35.1-46.3); Red Blood Cell Count 2.62 M/mm3 (4.30-5.90); White Blood Cell Count 12.14 K/mm3 (4.00-11.30)
[2020-05-11 22:09] LABS: Bun/Creatinine Ratio 13.3 (12.0-20.0); Calcium, Blood 8.9 mg/dL (8.5-10.1); Creatinine, Blood 1.28 mg/dL (0.60-1.20); Potassium, Blood 3.9 mmol/L (3.5-5.5)
== END | disposition home or self-care (01) ==
LOC: EDSTATUS 10:23 → LAB RH 21:00
PROVIDERS: Family Medicine
DX: I12.0 Hypertensive chronic kidney disease with stage 5 chronic kidney disease or end stage renal disease (principal); E11.22 Type 2 diabetes mellitus with diabetic chronic kidney disease; N18.5 Chronic kidney disease, stage 5
CPT/HCPCS: 80048; 85025

== ENCOUNTER → 2020-05-12 | Outpatient (CLI) | payer MEDICARE ==
[2020-05-12 09:51] LABS: Hematocrit 30.3 % (37.0-53.0); Hemoglobin 9.3 g/dL (13.5-17.5); Mean Corpuscular HGB 25.3 pg (26.0-34.0); Mean Corpuscular HGB Conc 30.7 g/dL (31.5-36.5); Mean Corpuscular Volume 83 fL (80-100); Platelet Count 151 K/mm3 (150-400); RDW Coefficient Variation 15.2 % (11.7-14.2); RDW Standard Deviation 45.4 fL (35.1-46.3); Red Blood Cell Count 3.67 M/mm3 (4.30-5.90); White Blood Cell Count 10.77 K/mm3 (4.00-11.30)
[2020-05-12 10:02] LABS: Mean Platelet Volume 12.5 fL (9.1-12.4)
[2020-05-12 10:09] LABS: International Normalized Ratio 1.3; Prothrombin Time Results 13.7 Sec (9.7-11.5)
== END | disposition home or self-care (01) ==
LOC: LAB RH 08:50 → EDSTATUS 10:25
PROVIDERS: Family Medicine
DX: I48.20 Chronic atrial fibrillation, unspecified (principal)
CPT/HCPCS: 85027; 85610; 85730

== ENCOUNTER → 2020-05-14 | Outpatient (CLI) | payer MEDICARE ==
[2020-05-14 15:34] LABS: Hematocrit 29.9 % (37.0-53.0); Hemoglobin 9.2 g/dL (13.5-17.5); Mean Corpuscular HGB 25.3 pg (26.0-34.0); Mean Corpuscular HGB Conc 30.8 g/dL (31.5-36.5); Mean Corpuscular Volume 82 fL (80-100); Mean Platelet Volume 12.6 fL (9.1-12.4); Platelet Count 150 K/mm3 (150-400); RDW Coefficient Variation 15.2 % (11.7-14.2); RDW Standard Deviation 45.5 fL (35.1-46.3); Red Blood Cell Count 3.64 M/mm3 (4.30-5.90); White Blood Cell Count 7.87 K/mm3 (4.00-11.30)
[2020-05-14 16:22] LABS: Albumin, Blood 2.3 g/dL (3.4-5.0); Albumin/Globulin Ratio 0.6 (0.8-1.8); Bilirubin, Total 0.7 mg/dL (0.1-1.0); Bun/Creatinine Ratio 19.5 (12.0-20.0); Calcium, Blood 8.5 mg/dL (8.5-10.1); Creatinine, Blood 1.28 mg/dL (0.60-1.20); Globulin, Blood 4.1 g/dL (2.2-4.0); Potassium, Blood 3.7 mmol/L (3.5-5.5); Total Protein, Blood 6.4 g/dL (6.4-8.2)
== END | disposition home or self-care (01) ==
LOC: EDSTATUS 10:26 → LAB RH 14:07
PROVIDERS: Family Medicine
DX: M86.171 Other acute osteomyelitis, right ankle and foot (principal); E11.9 Type 2 diabetes mellitus without complications
CPT/HCPCS: 80053; 85027

== ENCOUNTER → 2020-05-18 | Outpatient (CLI) | payer OTHER, MEDICARE ==
[2020-05-18 13:28] LABS: BASOPHILS ABSOLUTE AUTO 0.03 K/mm3 (0.00-0.23); BASOPHILS PERCENT AUTO 0 % (0-2); EOSINOPHILS ABSOLUTE AUTO 0.26 K/mm3 (0.00-0.68); EOSINOPHILS PERCENT AUTO 3 % (0-6); Hematocrit 33.5 % (37.0-53.0); Hemoglobin 10.1 g/dL (13.5-17.5); IMMATURE GRAN ABSOLUTE AUTO 0.05 K/mm3 (0.00-0.10); IMMATURE GRAN PERCENT AUTO 1 % (0-1); LYMPHOCYTES ABSOLUTE AUTO 1.32 K/mm3 (0.84-5.20); LYMPHOCYTES PERCENT AUTO 14 % (21-46); MONOCYTES ABSOLUTE AUTO 0.66 K/mm3 (0.16-1.47); MONOCYTES PERCENT AUTO 7 % (4-13); Mean Corpuscular HGB 25.3 pg (26.0-34.0); Mean Corpuscular HGB Conc 30.1 g/dL (31.5-36.5); Mean Corpuscular Volume 84 fL (80-100); Mean Platelet Volume 12.3 fL (9.1-12.4); NEUTROPHILS ABSOLUTE AUTO 6.97 K/mm3 (1.96-9.15); NEUTROPHILS PERCENT AUTO 75 % (41-73); Platelet Count 153 K/mm3 (150-400); RDW Coefficient Variation 15.1 % (11.7-14.2); RDW Standard Deviation 45.8 fL (35.1-46.3); Red Blood Cell Count 3.99 M/mm3 (4.30-5.90); White Blood Cell Count 9.29 K/mm3 (4.00-11.30)
[2020-05-18 14:36] LABS: Bun/Creatinine Ratio 18.4 (12.0-20.0); Calcium, Blood 8.5 mg/dL (8.5-10.1); Creatinine, Blood 1.25 mg/dL (0.60-1.20)
== END | disposition home or self-care (01) ==
LOC: LAB SHORT 11:10 → LAB RH 11:10
PROVIDERS: Family Medicine
DX: M86.171 Other acute osteomyelitis, right ankle and foot (principal)
CPT/HCPCS: 80048; 85025

== ENCOUNTER → 2020-06-01 | Outpatient (CLI) | payer MEDICARE ==
[2020-06-01 16:50] LABS: BASOPHILS ABSOLUTE AUTO 0.03 K/mm3 (0.00-0.23); BASOPHILS PERCENT AUTO 0 % (0-2); EOSINOPHILS ABSOLUTE AUTO 0.15 K/mm3 (0.00-0.68); EOSINOPHILS PERCENT AUTO 1 % (0-6); Hematocrit 33.4 % (37.0-53.0); Hemoglobin 9.8 g/dL (13.5-17.5); IMMATURE GRAN ABSOLUTE AUTO 0.04 K/mm3 (0.00-0.10); IMMATURE GRAN PERCENT AUTO 0 % (0-1); LYMPHOCYTES ABSOLUTE AUTO 1.55 K/mm3 (0.84-5.20); LYMPHOCYTES PERCENT AUTO 15 % (21-46); MONOCYTES ABSOLUTE AUTO 0.89 K/mm3 (0.16-1.47); MONOCYTES PERCENT AUTO 8 % (4-13); Mean Corpuscular HGB 24.9 pg (26.0-34.0); Mean Corpuscular HGB Conc 29.3 g/dL (31.5-36.5); Mean Corpuscular Volume 85 fL (80-100); NEUTROPHILS ABSOLUTE AUTO 7.89 K/mm3 (1.96-9.15); NEUTROPHILS PERCENT AUTO 75 % (41-73); Platelet Count 130 K/mm3 (150-400); RDW Coefficient Variation 15.1 % (11.7-14.2); RDW Standard Deviation 47.2 fL (35.1-46.3); Red Blood Cell Count 3.93 M/mm3 (4.30-5.90); White Blood Cell Count 10.55 K/mm3 (4.00-11.30)
[2020-06-01 16:51] LABS: Mean Platelet Volume 12.6 fL (9.1-12.4)
[2020-06-01 17:05] LABS: Anion Gap 6 mmol/L (6-16); Blood Urea Nitrogen 19 mg/dL (8-24); Bun/Creatinine Ratio 16.7 (12.0-20.0); CO2, Blood 27 mmol/L (21-32); Calcium, Blood 8.9 mg/dL (8.5-10.1); Chloride, Blood 107 mmol/L (98-108); Creatinine, Blood 1.14 mg/dL (0.60-1.20); Glomerular Filtration Rate >60 (60-); Glucose, Blood 93 mg/dL (70-99); Potassium, Blood 4.5 mmol/L (3.5-5.5); Sodium, Blood 140 mmol/L (136-145)
== END | disposition home or self-care (01) ==
LOC: EDSTATUS 10:28 → LAB RH 15:32
PROVIDERS: Family Medicine
DX: E11.22 Type 2 diabetes mellitus with diabetic chronic kidney disease (principal); N18.3 Chronic kidney disease, stage 3 (moderate); I50.9 Heart failure, unspecified
CPT/HCPCS: 80048; 85025

== ENCOUNTER 2020-06-11 12:36 | Day surgery (SDC) | payer OTHER ==
[~2020-06-11] VITALS: Ht 182.9 cm; Wt 91.0 kg
--- NOTE | 2020-06-11 15:19 | NUR ---
06/11/20 1519 Rosaline Treviño PT REQUESTS TO STAY IN BED RATHER THAN TRANSFER TO RECLINER D/T BEING WHEELCHAIR BOUND AT THIS TIME. PT STS HE SELF-TRANSFERS WITHOUT ASSISTANCE. PT REQUESTS TO TRANSFER DIRECTLY TO HIS ELECTRIC WHEELCHAIR RATHER THAN RECLINER PRIOR TO DISCHARGE.
== END 2020-06-11 16:00 | disposition home or self-care (01) ==
LOC: ORSCSDS 12:36
PROVIDERS: Podiatrist Foot & Ankle Surgery
PROC: 0Y6P0Z0 Detachment at Right 1st Toe, Complete, Open Approach (ICD-10-PCS; principal; 2020-06-11 14:15)
DX: I96 Gangrene, not elsewhere classified (principal); E11.9 Type 2 diabetes mellitus without complications; K21.9 Gastro-esophageal reflux disease without esophagitis; G47.33 Obstructive sleep apnea (adult) (pediatric); I10 Essential (primary) hypertension; I25.10 Atherosclerotic heart disease of native coronary artery without angina pectoris; I25.2 Old myocardial infarction; I48.91 Unspecified atrial fibrillation; Z79.4 Long term (current) use of insulin; Z79.899 Other long term (current) drug therapy
CPT/HCPCS: 82947; J0171; J2250; J3010; J3370; J7120

== ENCOUNTER 2020-09-20 12:55 | Day surgery (SDC) | payer OTHER ==
[~2020-09-20] VITALS: Ht 182.9 cm; Wt 89.0 kg
--- NOTE | 2020-09-20 14:31 | NUR ---
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 DR COLLINS SAYS THATS OK GO AHEAD AND CONTINUE THE VANCOMYCIN.
--- NOTE | 2020-09-20 15:01 | NUR ---
09/20/20 1501 Macrina Vick PRE DONE WITH WET PREP DUE TO OPEN SORES ON SECOND TOE AND LATERAL EDGE OF FOOT.
== END 2020-09-20 16:12 | disposition home or self-care (01) ==
LOC: ORSCSDS 12:55
PROVIDERS: Podiatrist Foot & Ankle Surgery
PROC: 0QBN0ZZ Excision of Right Metatarsal, Open Approach (ICD-10-PCS; principal; 2020-09-20 14:30)
PROC: 0Y6R0Z1 Detachment at Right 2nd Toe, High, Open Approach (ICD-10-PCS; principal; 2020-09-20 14:30)
DX: M86.171 Other acute osteomyelitis, right ankle and foot (principal); L03.031 Cellulitis of right toe; I73.9 Peripheral vascular disease, unspecified; E11.8 Type 2 diabetes mellitus with unspecified complications; I10 Essential (primary) hypertension; I48.91 Unspecified atrial fibrillation; I25.2 Old myocardial infarction; Z95.0 Presence of cardiac pacemaker; J44.9 Chronic obstructive pulmonary disease, unspecified; E78.5 Hyperlipidemia, unspecified; G47.33 Obstructive sleep apnea (adult) (pediatric); F17.210 Nicotine dependence, cigarettes, uncomplicated; E11.9 Type 2 diabetes mellitus without complications; Z79.899 Other long term (current) drug therapy; Z79.4 Long term (current) use of insulin
CPT/HCPCS: 82947; 88305; 88311; J0171; J1100; J2250; J2370; J2405; J2704; J3010; J3370; J7120

== ENCOUNTER 2020-10-20 10:33 | Day surgery (SDC) | payer OTHER, MEDICARE ==
[~2020-10-20] VITALS: Ht 182.9 cm; Wt 83.5 kg
[2020-10-20] MEDS ORDERED: CARV6.25 PO (11:46)
[2020-10-20] MEDS ORDERED: ACET325 PO (11:49)
[2020-10-20] MEDS ORDERED: FERSU300 PO (11:50)
[2020-10-20] MEDS ORDERED: ALBU90OI INH (11:52)
[2020-10-20 16:32] LABS: Hematocrit 25.6 % (37.0-53.0); Hemoglobin 7.6 g/dL (13.5-17.5); Mean Corpuscular HGB 22.3 pg (26.0-34.0); Mean Corpuscular HGB Conc 29.7 g/dL (31.5-36.5); Mean Corpuscular Volume 75 fL (80-100); Platelet Count 124 K/mm3 (150-400); Red Blood Cell Count 3.41 M/mm3 (4.30-5.90); White Blood Cell Count 6.09 K/mm3 (4.00-11.30)
--- NOTE | 2020-10-20 16:37 | NUR ---
patient returned to [facility] recovery room awaiting PCU bed. denies discomfort at site. states that he has arthritic pain in his back. vital signs stable. left groin with dressing over femoral artery site. small ammount of blood (less than a dime size under top edge of dressing. bruising and sweel ing around site noted, area is soft. bruised area is marked and not extending.
--- NOTE | 2020-10-20 17:02 | NUR ---
ROSALVA RT FROM THE PROCEDURE IN TO ASSESS SITE. IT IS UNCHANGED. PATIENT WAS TURNED TO ASSESS FLANK AND BACK. THERE WAS NO SWELLING, BRUISING, OR TENDERNESS.
--- NOTE | 2020-10-20 17:12 | NUR ---
RIGHT GROIN SITE UNCHANGED. PATIENT RESTING. VITALS STABLE
--- NOTE | 2020-10-20 18:55 | NUR ---
PT TO ROOM AT 1752; RECEIVIED BEDSIDE REPORT FROM ROD JIMENEZ IN FULL STACK WEB DEVELOPER. PT A&Ox3. LEFT GROIN SITE NOTED, BRUSING APPEARS TO BE SLOWLY SPREADING PAST THE OUTLINES; SOFT BUT TENDER. BEDSIDE REPORT GIVEN TO ONCOMING RN.
--- NOTE | 2020-10-21 04:00 | NUR ---
SHIFT SUMMARY PATIENT IS ALERT AND ORIENTED X4. COOPERATIVE WITH CARE. PATIENT SLEPT MOST THE NIGHT. STATED HE HAD CHRONIC BACK PAIN, MEDICATED, SEE EMAR. PATIENTS SURGICAL ACCESS SITE UNCHANGED FROM BEGINNING OF SHIFT WITH HEMATOMA PURPLE IN COLOR. SOME BRUISING IS JUST OUTSIDE THE DOTED LINE. SMALL AMOUNT OF BLOOD IN DRESSING. PATIENT HAS GOOD FEELING AND PULSES. STATES LEFT GROIN AREA IS TENDER WHEN PALPATED. 02 SATS >95% ON RA. VSS, NO ACUTE CHANGES. CALL LIGHT IN REACH.
--- NOTE | 2020-10-21 11:38 | NUR ---
DISCHARGE DISCHARGE INSTRUCTIONS, FOLLOW UP APPOINTMENTS AND MEDICATION LIST REVIEWED WITH PT. QUESTIONS/CONCERNS ANSWERED. PT VERBALLY INDICATED UNDERSTANDING OF ALL INSTRUCTIONS RECEIVED. RAC IV REMOVED, SITE WNL. TELE BOX REMOVED AND RETURNED TO TELE MONITORS. [facility] TRAN[facility] TAKE HOME, PT WITH OWN ELECTRIC W/C. ESCORTED OUT BY JOSE LUIS
== END 2020-10-21 11:37 | disposition home or self-care (01) ==
LOC: MHTC 10:33 → PCU 17:45 → MHTC 10-21 11:37
PROVIDERS: Radiology Diagnostic Radiology
DX: E11.51 Type 2 diabetes mellitus with diabetic peripheral angiopathy without gangrene (principal); I70.223 Atherosclerosis of native arteries of extremities with rest pain, bilateral legs; J44.9 Chronic obstructive pulmonary disease, unspecified; I25.10 Atherosclerotic heart disease of native coronary artery without angina pectoris; I48.91 Unspecified atrial fibrillation; N40.0 Benign prostatic hyperplasia without lower urinary tract symptoms; I11.0 Hypertensive heart disease with heart failure; I50.32 Chronic diastolic (congestive) heart failure; E11.40 Type 2 diabetes mellitus with diabetic neuropathy, unspecified; K21.9 Gastro-esophageal reflux disease without esophagitis; I25.2 Old myocardial infarction; E78.5 Hyperlipidemia, unspecified; G47.33 Obstructive sleep apnea (adult) (pediatric); M06.9 Rheumatoid arthritis, unspecified; F12.90 Cannabis use, unspecified, uncomplicated; Z89.421 Acquired absence of other right toe(s); Z85.9 Personal history of malignant neoplasm, unspecified; Z89.512 Acquired absence of left leg below knee; Z95.1 Presence of aortocoronary bypass graft; Z95.2 Presence of prosthetic heart valve; Z92.3 Personal history of irradiation; Z96.651 Presence of right artificial knee joint; Z87.891 Personal history of nicotine dependence; Z88.0 Allergy status to penicillin; Z88.2 Allergy status to sulfonamides; Z91.048 Other nonmedicinal substance allergy status; Z79.4 Long term (current) use of insulin
CPT/HCPCS: 37227; 37228; 37232; 75716; 75774; 82947; 85027; 85347; 86850; 86900; 86901; 94640; 94760; 99152; 99153; A9270; C1714; C1725; C1760; C1769; C1874; C1884; C1887; C1894; C2623; J1644; J2250; J3010; J7030; J7050; Q9967

== ENCOUNTER 2021-02-21 12:11 | Day surgery (SDC) | payer OTHER, MEDICARE ==
[~2021-02-21] VITALS: Ht 182.9 cm; Wt 83.9 kg
[~2021-02-21 12:11] MED LIST changes: +CARV6.25 PO
--- NOTE | 2021-02-21 13:38 | NUR ---
02/21/21 1338 KATTY GARCIA VANCOMYCIN STARTED VIA PUMP PREOP
== END 2021-02-21 15:08 | disposition home or self-care (01) ==
LOC: ORSCSDS 12:11
PROVIDERS: Podiatrist Foot & Ankle Surgery
PROC: 0Y6X0Z0 Detachment at Right 5th Toe, Complete, Open Approach (ICD-10-PCS; principal; 2021-02-21 13:45)
PROC: 0Y6T0Z0 Detachment at Right 3rd Toe, Complete, Open Approach (ICD-10-PCS; principal; 2021-02-21 13:45)
PROC: 0Y6V0Z0 Detachment at Right 4th Toe, Complete, Open Approach (ICD-10-PCS; principal; 2021-02-21 13:45)
DX: M86.9 Osteomyelitis, unspecified (principal); E11.621 Type 2 diabetes mellitus with foot ulcer; I10 Essential (primary) hypertension; Z95.0 Presence of cardiac pacemaker; I48.91 Unspecified atrial fibrillation; Z79.01 Long term (current) use of anticoagulants; J44.9 Chronic obstructive pulmonary disease, unspecified; G47.33 Obstructive sleep apnea (adult) (pediatric); F17.210 Nicotine dependence, cigarettes, uncomplicated; K21.9 Gastro-esophageal reflux disease without esophagitis; Z79.4 Long term (current) use of insulin; Z79.899 Other long term (current) drug therapy
CPT/HCPCS: 82947; 88305; 88311; J0171; J2250; J2704; J3010; J3370; J7120

== ENCOUNTER 2022-02-27 14:16 | Emergency (ER) | payer OTHER ==
[~2022-02-27] VITALS: Ht 182.9 cm; Wt 76.2 kg
[2022-02-27 15:22] LABS: BASOPHILS ABSOLUTE AUTO 0.05 K/mm3 (0.00-0.23); BASOPHILS PERCENT AUTO 0 % (0-2); EOSINOPHILS ABSOLUTE AUTO 0.71 K/mm3 (0.00-0.68); EOSINOPHILS PERCENT AUTO 4 % (0-6); Hematocrit 39.6 % (37.0-53.0); Hemoglobin 12.6 g/dL (13.5-17.5); IMMATURE GRAN ABSOLUTE AUTO 0.13 K/mm3 (0.00-0.10); IMMATURE GRAN PERCENT AUTO 1 % (0-1); LYMPHOCYTES ABSOLUTE AUTO 1.56 K/mm3 (0.84-5.20); LYMPHOCYTES PERCENT AUTO 10 % (21-46); MONOCYTES ABSOLUTE AUTO 1.26 K/mm3 (0.16-1.47); MONOCYTES PERCENT AUTO 8 % (4-13); Mean Corpuscular HGB 30.2 pg (26.0-34.0); Mean Corpuscular HGB Conc 31.8 g/dL (31.5-36.5); Mean Corpuscular Volume 95 fL (80-100); Mean Platelet Volume 12.4 fL (9.1-12.4); NEUTROPHILS ABSOLUTE AUTO 12.48 K/mm3 (1.96-9.15); NEUTROPHILS PERCENT AUTO 77 % (41-73); Platelet Count 120 K/mm3 (150-400); RDW Coefficient Variation 12.8 % (11.7-14.2); RDW Standard Deviation 44.1 fL (35.1-46.3); Red Blood Cell Count 4.17 M/mm3 (4.30-5.90); White Blood Cell Count 16.19 K/mm3 (4.00-11.30)
[2022-02-27 15:43] LABS: Albumin, Blood 3.1 g/dL (3.4-5.0); Albumin/Globulin Ratio 0.7 (0.8-1.8); Bilirubin, Total 0.4 mg/dL (0.1-1.0); Bun/Creatinine Ratio 27.5 (12.0-20.0); Calcium, Blood 9.1 mg/dL (8.5-10.1); Creatinine, Blood 2.69 mg/dL (0.60-1.20); Globulin, Blood 4.6 g/dL (2.2-4.0); Potassium, Blood 5.4 mmol/L (3.5-5.5); Total Protein, Blood 7.7 g/dL (6.4-8.2)
[2022-02-27] MEDS ORDERED: AMOCLA875 PO (17:27)
== END 2022-02-27 17:40 | disposition home or self-care (01) ==
LOC: ER 14:16
PROVIDERS: Physician Assistant
DX: L02.611 Cutaneous abscess of right foot (principal); I10 Essential (primary) hypertension; E11.9 Type 2 diabetes mellitus without complications; Z89.512 Acquired absence of left leg below knee; Z88.0 Allergy status to penicillin; Z88.2 Allergy status to sulfonamides; Z91.048 Other nonmedicinal substance allergy status; Z79.899 Other long term (current) drug therapy; Z87.891 Personal history of nicotine dependence
CPT/HCPCS: 36415; 73620; 80053; 85025; A9270

== ENCOUNTER 2022-03-05 10:21 | Emergency (ER) | payer OTHER ==
[~2022-03-05] VITALS: Ht 182.9 cm; Wt 76.7 kg
[~2022-03-05 10:21] MED LIST changes: +AMOCLA875 PO
[2022-03-05 11:26] LABS: BASOPHILS ABSOLUTE AUTO 0.04 K/mm3 (0.00-0.23); BASOPHILS PERCENT AUTO 0 % (0-2); EOSINOPHILS ABSOLUTE AUTO 0.38 K/mm3 (0.00-0.68); EOSINOPHILS PERCENT AUTO 3 % (0-6); Hemoglobin 11.5 g/dL (13.5-17.5); IMMATURE GRAN ABSOLUTE AUTO 0.07 K/mm3 (0.00-0.10); IMMATURE GRAN PERCENT AUTO 1 % (0-1); LYMPHOCYTES ABSOLUTE AUTO 0.69 K/mm3 (0.84-5.20); LYMPHOCYTES PERCENT AUTO 6 % (21-46); MONOCYTES ABSOLUTE AUTO 0.91 K/mm3 (0.16-1.47); MONOCYTES PERCENT AUTO 8 % (4-13); Mean Corpuscular HGB 30.4 pg (26.0-34.0); Mean Corpuscular HGB Conc 31.9 g/dL (31.5-36.5); Mean Corpuscular Volume 95 fL (80-100); Mean Platelet Volume 11.9 fL (9.1-12.4); NEUTROPHILS ABSOLUTE AUTO 9.22 K/mm3 (1.96-9.15); NEUTROPHILS PERCENT AUTO 82 % (41-73); Platelet Count 146 K/mm3 (150-400); RDW Coefficient Variation 13.1 % (11.7-14.2); RDW Standard Deviation 46.4 fL (35.1-46.3); Red Blood Cell Count 3.78 M/mm3 (4.30-5.90); White Blood Cell Count 11.31 K/mm3 (4.00-11.30)
[2022-03-05 11:43] LABS: C-REACTIVE PROTEIN, EXT RANGE 12.8 mg/dL (0.000-0.300)
[2022-03-05 11:45] LABS: Albumin, Blood 2.9 g/dL (3.4-5.0); Albumin/Globulin Ratio 0.6 (0.8-1.8); Bilirubin, Total 0.3 mg/dL (0.1-1.0); Bun/Creatinine Ratio 29.4 (12.0-20.0); Calcium, Blood 8.9 mg/dL (8.5-10.1); Creatinine, Blood 2.65 mg/dL (0.60-1.20); Globulin, Blood 4.5 g/dL (2.2-4.0); Potassium, Blood 5.2 mmol/L (3.5-5.5); Total Protein, Blood 7.4 g/dL (6.4-8.2)
[2022-03-05] MEDS ORDERED: AMOCLA875 PO (13:10)
[2022-03-05] MEDS ORDERED: Roxicodone5 MG PO (13:10)
== END 2022-03-05 14:25 | disposition home or self-care (01) ==
LOC: ER 10:21
PROVIDERS: Physician Assistant
DX: L03.115 Cellulitis of right lower limb (principal); L97.519 Non-pressure chronic ulcer of other part of right foot with unspecified severity; N40.0 Benign prostatic hyperplasia without lower urinary tract symptoms; J44.9 Chronic obstructive pulmonary disease, unspecified; E10.9 Type 1 diabetes mellitus without complications; I13.0 Hypertensive heart and chronic kidney disease with heart failure and stage 1 through stage 4 chronic kidney disease, or unspecified chronic kidney disease; N18.9 Chronic kidney disease, unspecified; I50.32 Chronic diastolic (congestive) heart failure; Z95.1 Presence of aortocoronary bypass graft; Z95.2 Presence of prosthetic heart valve; Z88.0 Allergy status to penicillin; Z88.2 Allergy status to sulfonamides; Z79.899 Other long term (current) drug therapy; Z79.4 Long term (current) use of insulin; Z91.09 Other allergy status, other than to drugs and biological substances; Z87.891 Personal history of nicotine dependence; Z95.0 Presence of cardiac pacemaker
CPT/HCPCS: 73630; 80053; 85025; 86140; A9270; J0690

== ENCOUNTER 2022-03-14 09:12 | Inpatient (IN) | payer OTHER ==
[~2022-03-14] VITALS: Ht 182.9 cm; Wt 80.9 kg
[~2022-03-14 09:12] MED LIST changes: +K-Dur10 MEQ PO; -POTCHL20ER PO; +Roxicodone5 MG PO
[2022-03-14 10:36] LABS: BASOPHILS ABSOLUTE AUTO 0.03 K/mm3 (0.00-0.23); BASOPHILS PERCENT AUTO 0 % (0-2); EOSINOPHILS ABSOLUTE AUTO 0.52 K/mm3 (0.00-0.68); EOSINOPHILS PERCENT AUTO 7 % (0-6); Hematocrit 36.6 % (37.0-53.0); Hemoglobin 11.8 g/dL (13.5-17.5); IMMATURE GRAN PERCENT AUTO 1 % (0-1); LYMPHOCYTES ABSOLUTE AUTO 1.17 K/mm3 (0.84-5.20); LYMPHOCYTES PERCENT AUTO 15 % (21-46); MONOCYTES ABSOLUTE AUTO 0.73 K/mm3 (0.16-1.47); MONOCYTES PERCENT AUTO 9 % (4-13); Mean Corpuscular HGB 30.4 pg (26.0-34.0); Mean Corpuscular HGB Conc 32.2 g/dL (31.5-36.5); Mean Corpuscular Volume 94 fL (80-100); Mean Platelet Volume 12.3 fL (9.1-12.4); NEUTROPHILS ABSOLUTE AUTO 5.46 K/mm3 (1.96-9.15); NEUTROPHILS PERCENT AUTO 68 % (41-73); Platelet Count 143 K/mm3 (150-400); RDW Coefficient Variation 13.1 % (11.7-14.2); RDW Standard Deviation 45.1 fL (35.1-46.3); Red Blood Cell Count 3.88 M/mm3 (4.30-5.90); White Blood Cell Count 8.01 K/mm3 (4.00-11.30)
[2022-03-14 10:49] LABS: Albumin/Globulin Ratio 0.7 (0.8-1.8); Bilirubin, Total 0.2 mg/dL (0.1-1.0); Bun/Creatinine Ratio 33.9 (12.0-20.0); Calcium, Blood 9.1 mg/dL (8.5-10.1); Creatinine, Blood 2.27 mg/dL (0.60-1.20); Globulin, Blood 4.2 g/dL (2.2-4.0); Potassium, Blood 4.9 mmol/L (3.5-5.5); Total Protein, Blood 7.2 g/dL (6.4-8.2)
--- NOTE | 2022-03-14 18:28 | NUR ---
PATIENT IS ALERT AND ORIENTED AND COOPERATIVE WITH CARE. PLAN IS FOR I&D ON SUNDAY WITH DR. FRY. LEFT BKA. WOUND ON BOTTOM OF RIGHT FOOT. PICTURE ON CHART. WILL CONTINUE TO MONITOR
[2022-03-15 04:50] LABS: Hematocrit 30.8 % (37.0-53.0); Hemoglobin 9.9 g/dL (13.5-17.5); Mean Corpuscular HGB 29.8 pg (26.0-34.0); Mean Corpuscular HGB Conc 32.1 g/dL (31.5-36.5); Mean Corpuscular Volume 93 fL (80-100); Mean Platelet Volume 11.9 fL (9.1-12.4); Platelet Count 130 K/mm3 (150-400); RDW Coefficient Variation 13.2 % (11.7-14.2); RDW Standard Deviation 44.6 fL (35.1-46.3); Red Blood Cell Count 3.32 M/mm3 (4.30-5.90); White Blood Cell Count 5.32 K/mm3 (4.00-11.30)
[2022-03-15 05:17] LABS: Bun/Creatinine Ratio 31.1 (12.0-20.0); Calcium, Blood 8.7 mg/dL (8.5-10.1); Creatinine, Blood 2.38 mg/dL (0.60-1.20); Potassium, Blood 4.3 mmol/L (3.5-5.5)
--- NOTE | 2022-03-15 06:46 | NUR ---
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 HX of agent Howell exposure in . Wound care for drainage. 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
--- NOTE | 2022-03-15 07:47 | NUR ---
ASSUMED CARE AT 0715. REPORT RECEIVED FROM GENERAL ADMINISTRATOR. PATIENT IS IN BED, CALM, NO DISTRESS NOTED. CHART REVIEWED. PATIENT IS AWAITING I AND D SCHEDULED FOR SUNDAY PER REPORT. WILL CONT TO MONITOR.
[2022-03-15 12:36] LABS: Vancomycin, Random 13.2 ug/mL
--- NOTE | 2022-03-15 15:03 | NUR ---
Upon receiving a spiritual care referral, I visit pt. 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 We explore sources of menaing and value, how to reframe how he views his circumstances and the importance of not under-estimating his presence. We talk about how he was "kicked out" of the [employer] but that he can still maintain his connection to God and His place in his thought life. I normalize his experience, reinforce helpful attitudes and practices, hear confession and provide therapeutic listening, gentle director of group counseling program and prayer. Pt responds well and shows signs of catharsis and renewed hope. I will continue to remain available to pt and family.
--- NOTE | 2022-03-15 17:57 | NUR ---
SHIFT SUMMARY NO ACUTE CHANGES THIS SHIFT. PATIENT IS ALERT, ORIENTED AND COOPERATIVE WITH CARE. PLAN IS FOR PATIENT TO GO TO OR FOR I&D OF RIGHT FOOT WOUND. PER PATIENT HE WAS INSTRUCTED TO BE NON WT BEARING ON THE FOOT AND IS INDEPENDENT IN TRANSFERING TO HIS ELECTRIC WHEELCHAIR. BED LOW AND LOCKED, CALL LIGHT WITHIN REACH. WILL CONT TO MONITOR UNTIL REPORT GIVEN TO PROFILE GRINDER.
[2022-03-16 04:25] LABS: Hematocrit 31.9 % (37.0-53.0); Hemoglobin 10.2 g/dL (13.5-17.5); Mean Corpuscular HGB 30.4 pg (26.0-34.0); Mean Corpuscular Volume 95 fL (80-100); Mean Platelet Volume 12.2 fL (9.1-12.4); Platelet Count 134 K/mm3 (150-400); Red Blood Cell Count 3.36 M/mm3 (4.30-5.90); White Blood Cell Count 6.27 K/mm3 (4.00-11.30)
[2022-03-16 04:45] LABS: Albumin, Blood 2.5 g/dL (3.4-5.0); Anion Gap 5 mmol/L (6-16); Blood Urea Nitrogen 68 mg/dL (8-24); Bun/Creatinine Ratio 29.3 (12.0-20.0); CO2, Blood 19 mmol/L (21-32); Calcium, Blood 8.9 mg/dL (8.5-10.1); Chloride, Blood 115 mmol/L (98-108); Creatinine, Blood 2.32 mg/dL (0.60-1.20); Glomerular Filtration Rate 28 (60-); Glucose, Blood 127 mg/dL (70-99); Potassium, Blood 4.7 mmol/L (3.5-5.5); Sodium, Blood 139 mmol/L (136-145)
[2022-03-16 10:44] LABS: Influenza A, PCR NEGATIVE (NEGATIVE); Influenza B, PCR NEGATIVE (NEGATIVE); Resp Syncytial Virus, PCR NEGATIVE (NEGATIVE); SARS-Cov-2 (COVID-19) PCR, MMC NEGATIVE (NEGATIVE)
[2022-03-16 13:35] LABS: Vancomycin, Random 21.7 ug/mL
--- NOTE | 2022-03-16 14:13 | NUR ---
ASSUMED COMFORT AND CARE OF THIS PATIENT AT 0715 TODAY. PATIENT WAS UP IN HIS ELECTRIC WHEEL CHAIR AND TALKING WITH STAFF. PATIENT HAS REMAINED NPO SINCE MIDNIGHT. AM MEDS HELD FOR NPO STATUS. HE IS CURRENTLY RECEIVING NS AT 150ML/HR. PATIENT HAS CURLEX BANDAGE TO FOOT CHANGED LAST NOC. HE IS AO X 4. USES CALL LIGHT APPROPRIATELY AND IS COOPERATIVE WITH CARE. TRANSFERS TO AND FROM HIS WHEELCHAIR WITHOUT ASSIST. THIS PATIENT LIVES AT HOME BY HIMSELF. HIS VITAL SIGNS THIS AM AND AT LUNCH TIME ARE WNL. NADN FROM THIS PATIENT.
--- NOTE | 2022-03-16 15:52 | NUR ---
THE PATIENT WAS BROUGHT TO DAY SURGERY FOR HIS PROCEDURE.
--- NOTE | 2022-03-16 16:32 | NUR ---
assumed care of pt, he is in procedure at this time.
--- NOTE | 2022-03-16 17:46 | NUR ---
03/16/22 5836 Lew Alcantara NO ADDITIONAL HEATING PER ANESTHESIA. NO SCD PER MD DUE TO OPERATION SITE. CULTURE SENT TO LAB.
--- NOTE | 2022-03-16 18:53 | NUR ---
pt arrived back to his room via bacilio from pacu, v.s started, he is eating dinner, states he is doing fine, wiggles foot and moves it around, corey dressing in place, v.s. stable. call light in reach.
[2022-03-17] MEDS ORDERED: OXYC5 PO (02:31)
[2022-03-17] MEDS ORDERED: GABAPENTIN600 MG PO ×2 (02:34→02:35)
[2022-03-17] MEDS ORDERED: FURO40 PO (02:35)
[2022-03-17] MEDS ORDERED: BUSP10 PO (02:35)
[2022-03-17] MEDS ORDERED: TRAZ50 PO (02:36)
[2022-03-17] MEDS ORDERED: TOPICAINE113 GM TOP (02:37)
[2022-03-17] MEDS ORDERED: FOLI1 PO (02:38)
[2022-03-17] MEDS ORDERED: GENTEAL TEARS S10 GM BOTHEYES (02:40)
[2022-03-17] MEDS ORDERED: ANTIFUNGAL POWD71 GM TOP (02:43)
[2022-03-17] MEDS ORDERED: IPRAT-ALBUT 0.5-3 ML INH (02:44)
[2022-03-17] MEDS ORDERED: CENTRUM SILVER1 EAC2 PO (02:44)
[2022-03-17] MEDS ORDERED: CLOP75 PO (02:45)
[2022-03-17] MEDS ORDERED: Triamcinolone A15 G3 TOP (02:46)
[2022-03-17] MEDS ORDERED: TRIA15CR3 TOP (02:46)
[2022-03-17] MEDS ORDERED: NYSTATIN TOP (02:49)
[2022-03-17 05:36] LABS: Albumin, Blood 2.6 g/dL (3.4-5.0); Anion Gap 7 mmol/L (6-16); Blood Urea Nitrogen 60 mg/dL (8-24); Bun/Creatinine Ratio 31.2 (12.0-20.0); CO2, Blood 18 mmol/L (21-32); Calcium, Blood 8.8 mg/dL (8.5-10.1); Chloride, Blood 117 mmol/L (98-108); Creatinine, Blood 1.92 mg/dL (0.60-1.20); Glomerular Filtration Rate 35 (60-); Glucose, Blood 103 mg/dL (70-99); Phosphorus, Blood 4.3 mg/dL (2.5-4.9); Potassium, Blood 4.4 mmol/L (3.5-5.5); Sodium, Blood 142 mmol/L (136-145); Vancomycin, Random 19.4 ug/mL
--- NOTE | 2022-03-17 06:21 | NUR ---
SHIFT SUMMARY NOC: PT REPORTS PAIN TO RIGHT FOOT SURGICAL SITE. PRN PAIN MEDICATIONS GIVEN WITH FAIRLY GOOD RELIEF. RIGHT FOOT ELEVATED. PT ABLE TO EXPRESS NEEDS. NO ACUTE EVENTS.
--- NOTE | 2022-03-17 10:15 | NUR ---
Pt. is awake in bed and welcomes my visit. Pt. is pleasant and displays evidence of being encouraged by recent procedure that allowed him to not lose some toes to gangrene. Pt. is a [facility] Vet, and we establish rapport. Listen theraputicaly with a calming presence. Pt. verbalizes some spiritual guilt. Pastoral Assignment Agent is given as we engage in issues of corey and belief. Pt. displays evidence of engagement and agreement. [place] with Pt. pt. verbalizes gratitude for the spiritual care visit.
[2022-03-17] MEDS ORDERED: Colace100 MG PO (14:41)
[2022-03-17] MEDS ORDERED: FERSU300 PO (14:41)
[2022-03-17] MEDS ORDERED: VISBIOME 112.51 EACH PO (14:43)
[2022-03-17] MEDS ORDERED: FLUTICASONE-SA1 EAC2 INH (14:43)
[2022-03-17] MEDS ORDERED: CLINDAMYCIN PO (14:44)
--- NOTE | 2022-03-17 18:46 | NUR ---
SHIFT SUMMARY; WOUND VAC PLACED ON PATIETS RIGHT FOOT. DC ORDERS ARE IN HOWEVER WOUND VAC HAS NOT BEEN OK'D BY TUNG AT SHIFT CHANGE. POSSIBLE DC TO HOME TOMORROW. PLAN IS PER FOR PATIENT TO GO TO HIS OFFICE 3 DAYS PER WEEK FOR WOUND VAC CHANGE UNTIL HOME HEALTH CAN SEE PATIENT. PATIENT MEDICATED WITH ROXYCODONE 5MG TODAY FOR PAIN X 3. HE IS AO X 4 TODAY AND IS COOPERATIVE WITH CARE. DAUGHTER IN LAW WOULD LIKE CALLED WHEN PATIENT IS ABLE TO DC SHE WILL BE ASSISTING IN HIS CARE AND DRIVING HIM HOME.
--- NOTE | 2022-03-18 05:29 | NUR ---
SHIFT SUMMARY NOC: WOUND VAC IN PLACE AND WORKING TO RIGHT FOOT, NO DRAINAGE. PT HAS PAIN TO RIGHT FOOT MILDLY CONTROLLED WITH CURRENT PRN MEDICATIONS. NO ACUTE EVENTS OVERNIGHT.
[2022-03-18 06:13] LABS: Vancomycin, Random 22.8 ug/mL
--- NOTE | 2022-03-18 17:44 | NUR ---
SHIFT SUMMARY PT A&OX 4, MOOD UP AND DOWN T/O SHIFT. PT VERBALIZED ANXIETY, NOTIFIED AND MEDICATED PER EMAR. FAMILY IN DURING VISITING HOURS, NOTIFIED THIS RN THAT PT IS A DAILY SMOKER AND HAS MENTAL HEALTH HX-ANXIETY AND PTSD- NOTIFIED AND MEDICATED PER EMAR. VSS. CALL LIGHT W/IN REACH. TOLERATING PO INTAKE. 0 OUTPUT FROM WOUND VAC-ASSESSED FOR LEAK, SEAL INTACT. PAIN MEDICATED PER EMAR. D/C PLANNING STATED DC PENDING DUE TO [facility] BEING CLOSED OVER WEEKEND, PENDING [facility] AUTH FOR [facility] TO PROVIDE WOUND VAC.
--- NOTE | 2022-03-19 05:56 | NUR ---
SHIFT SUMMARY NOC: PT HAVING NAUSEA AT START OF SHIFT AND HAVING ANXIETY ABOUT BEING IN HOSPITAL. MD CALLED ZOFRAN 8 MG IV ONCE AND TRAZADONE 50 MG PO HS ORDERED. PT HAD GOOD RESPONSE TO ZOFRAN. PT STILL RESTLESS, UP AND DOWN TO MOTORIZED CHAIR, TILL 0300. ILLEOSTOMY BAG CHANGED D/T OLD ONE LEAKING. WOUND VAC IN PLACE AND PATENT. PAIN TO RIGHT FOOT WELL CONTROLLED WITH CURRENT PRN MEDICATIONS. PT EAGER TO GO HOME.
--- NOTE | 2022-03-19 20:09 | NUR ---
SHIFT SUMMARY: PT A/O X 4, STANDBY ASSIST FOR TX TO CHAIR. PLEASANT AND COOPERATIVE WITH CARE TODAY. PT DID HAVE NAUSEA TODAY. COMPAZINE WAS EFFECTIVE IN TREATING NAUSEA. HE ALSO REPORTED PAIN IN R FOOT STATING HE FELT PINS AND NEEDLES WHERE WOUND VAC PLACED. OXYCODONE WAS EFFECTIVE IN TREATING PAIN. WOUND VAC REMAINED INTACT AND NO LEAKAGE TODAY. PT DID REPORT AT SHIFT END HIS FOOD TASTED FUNNY AND SMELLED FUNNY AND THAT IS WHY HE WASN'T EATING BUT HUMAN RESOURCES PARTNER WAS ABLE TO GET HIM CHICKEN NOODLE SOUP AND CRACKERS WHICH HE DID EAT WELL. BS HAVE REMAINED STABLE. PT DENIED PAIN OR CONCERNS AT SHIFT END AND WAS RESTING IN BED WATCHING TV.
[2022-03-20 05:04] LABS: Hematocrit 33.3 % (37.0-53.0); Hemoglobin 10.3 g/dL (13.5-17.5); Mean Corpuscular HGB 29.9 pg (26.0-34.0); Mean Corpuscular HGB Conc 30.9 g/dL (31.5-36.5); Mean Corpuscular Volume 97 fL (80-100); Mean Platelet Volume 12.7 fL (9.1-12.4); Platelet Count 105 K/mm3 (150-400); RDW Coefficient Variation 12.6 % (11.7-14.2); RDW Standard Deviation 44.3 fL (35.1-46.3); Red Blood Cell Count 3.45 M/mm3 (4.30-5.90); White Blood Cell Count 6.59 K/mm3 (4.00-11.30)
[2022-03-20 05:22] LABS: Bun/Creatinine Ratio 20.1 (12.0-20.0); Calcium, Blood 8.8 mg/dL (8.5-10.1); Creatinine, Blood 1.79 mg/dL (0.60-1.20); Potassium, Blood 3.9 mmol/L (3.5-5.5)
--- NOTE | 2022-03-20 06:34 | NUR ---
SUMMARY NO NEW ISSUES NOTED. PT WOUND VAC WORKING WELL. PT IS EAGER TO BE DISCHARGED. PT HAS SLEPT OFF AND ON DURING SHIFT. CALL LIGHT IN REACH.
[2022-03-20] MEDS ORDERED: LEVFLO500 PO (15:43)
--- NOTE | 2022-03-20 18:01 | NUR ---
LATE ENTRY DISCHARGE SUMMARY: EDUCATED PT ON DISCHARGE INSTRUCTIONS AND MEDICATIONS. WOUND VAC DRESSING CHANGED AND PHOTOS UPDATED. PT SWITCHED TO OUTPATIENT WOUND VAC. EDUCATED PT ON CARE OF WOUND VAC IF WOUND VAC ALARMS. SON PRESENT FOR EDUCATION. SON AND PT VU. PT BELONGINGS PACKED UP AND PT LEFT IN HIS POWER CHAIR WITH SON WHO SAID HE WILL TRANSFER HIS DAD TO HIS VEHICLE BECAUSE HE KNOWS HOW TO DO IT PROPERLY.
[2022-05-24] MEDS ORDERED: DOXYCYCLINE HY100 M1 PO (15:13)
[2022-05-24] MEDS ORDERED: ALBU90OI INH (18:44)
[2022-05-28] MEDS ORDERED: MIRALAX11910 PO (11:13)
[2022-06-09] MEDS ORDERED: Norco 5-325 Ta1 EACH PO (13:51)
[2022-06-09] MEDS ORDERED: SYMBICORT 16010.2 GM INH (13:51)
[2022-06-09] MEDS ORDERED: INSULANI (13:52)
[2022-06-09] MEDS ORDERED: NOVOLIN 70100 UNIT/3 SQ (13:52)
[2022-06-09] MEDS ORDERED: XARELTO20 MG PO (13:53)
[2022-06-09] MEDS ORDERED: OXYC5 PO (13:53)
[2022-06-09] MEDS ORDERED: THEO400ER PO (13:54)
[2022-06-09] MEDS ORDERED: VENL150ER PO (13:55)
== END 2022-03-20 15:57 | disposition home or self-care (01) | DRG 501 ==
LOC: ER 09:12 → MEDS 15:21
PROVIDERS: Emergency Medicine; Family Medicine; Internal Medicine; Nurse Practitioner Acute Care; Podiatrist Foot & Ankle Surgery; ADMIT Internal Medicine
PROC: 0KBV0ZZ Excision of Right Foot Muscle, Open Approach (ICD-10-PCS; principal; 2022-03-14)
PROC: 0J9Q0ZZ Drainage of Right Foot Subcutaneous Tissue and Fascia, Open Approach (ICD-10-PCS; 2022-03-16)
DX: T87.43 Infection of amputation stump, right lower extremity (principal); I13.0 Hypertensive heart and chronic kidney disease with heart failure and stage 1 through stage 4 chronic kidney disease, or unspecified chronic kidney disease; L02.611 Cutaneous abscess of right foot; I50.32 Chronic diastolic (congestive) heart failure; L03.115 Cellulitis of right lower limb; N17.9 Acute kidney failure, unspecified; E11.628 Type 2 diabetes mellitus with other skin complications; N40.0 Benign prostatic hyperplasia without lower urinary tract symptoms; N18.30 Chronic kidney disease, stage 3 unspecified; Z20.822 Contact with and (suspected) exposure to COVID-19; K21.9 Gastro-esophageal reflux disease without esophagitis; E11.22 Type 2 diabetes mellitus with diabetic chronic kidney disease; I48.0 Paroxysmal atrial fibrillation; E11.51 Type 2 diabetes mellitus with diabetic peripheral angiopathy without gangrene; Z96.653 Presence of artificial knee joint, bilateral; I25.10 Atherosclerotic heart disease of native coronary artery without angina pectoris; J44.9 Chronic obstructive pulmonary disease, unspecified; G47.33 Obstructive sleep apnea (adult) (pediatric); F17.210 Nicotine dependence, cigarettes, uncomplicated; D50.9 Iron deficiency anemia, unspecified; E11.40 Type 2 diabetes mellitus with diabetic neuropathy, unspecified; Z95.1 Presence of aortocoronary bypass graft; Z88.0 Allergy status to penicillin; Z87.39 Personal history of other diseases of the musculoskeletal system and connective tissue; Z93.3 Colostomy status; Z99.89 Dependence on other enabling machines and devices; Z88.2 Allergy status to sulfonamides; Z95.2 Presence of prosthetic heart valve; Z89.512 Acquired absence of left leg below knee; Z89.421 Acquired absence of other right toe(s); Z98.890 Other specified postprocedural states; Z95.0 Presence of cardiac pacemaker; Z88.8 Allergy status to other drugs, medicaments and biological substances; Z79.899 Other long term (current) drug therapy; Z79.02 Long term (current) use of antithrombotics/antiplatelets; Z79.51 Long term (current) use of inhaled steroids; Z79.891 Long term (current) use of opiate analgesic; Z79.4 Long term (current) use of insulin; Z91.19 Patient's noncompliance with other medical treatment and regimen
CPT/HCPCS: 0241U; 36415; 73630; 80048; 80053; 80069; 80202; 82947; 85025; 85027; 85651; 86140; 87070; 87075; 87077; 87186; 87205; 93005; 93010; 94640; 94664; 94760; 96365; 96375; 99284-25; A9270; C9113; J0692; J2001; J2185; J2405; J2704; J3010; J3370; J7040; J7060; J7120; Q0164

== ENCOUNTER → 2022-04-11 | Outpatient (CLI) | payer OTHER ==
[~2022-04-11] MED LIST changes: +ANTIFUNGAL POWD71 GM TOP; +CENTRUM SILVER1 EAC2 PO; +CLINDAMYCIN PO; +Colace100 MG PO; +FLUTICASONE-SA1 EAC2 INH; +GABAPENTIN600 MG PO; +GENTEAL TEARS S10 GM BOTHEYES; +IPRAT-ALBUT 0.5-3 ML INH; +LEVFLO500 PO; +NYSTATIN TOP; +TOPICAINE113 GM TOP; +TRIA15CR3 TOP; +Triamcinolone A15 G3 TOP; +VISBIOME 112.51 EACH PO
== END | disposition home or self-care (01) ==
LOC: LAB 09:00 → LAB SHORT 09:00
DX: E11.621 Type 2 diabetes mellitus with foot ulcer (principal)
CPT/HCPCS: 87070; 87075; 87077; 87186; 87205

== ENCOUNTER 2022-07-31 07:51 | Day surgery (SDC) | payer OTHER ==
[~2022-07-31] VITALS: Ht 182.9 cm; Wt 78.0 kg
[~2022-07-31 07:51] MED LIST changes: +DOXYCYCLINE HY100 M1 PO; +INSULANI; +MIRALAX11910 PO; +NOVOLIN 70100 UNIT/3 SQ; +Norco 5-325 Ta1 EACH PO; +SYMBICORT 16010.2 GM INH; +VENL150ER PO
--- NOTE | 2022-07-31 11:05 | NUR ---
report from dorene blake. pt resting in bed w/ eyes closed. angio-seal to l groin. site soft and non-tender.
--- NOTE | 2022-07-31 14:04 | NUR ---
PT AND FAMILY VERBALIZED UNDERSTANDING OF WRITTEN AND VERBAL D/C INST. IV REMOVED. PT TRANSFERED SELF TO W/C. -BLEEDING OR SWELLING L GROIN AREA.
== END 2022-07-31 14:00 | disposition home or self-care (01) ==
LOC: MHTC 07:51
DX: E11.51 Type 2 diabetes mellitus with diabetic peripheral angiopathy without gangrene (principal); I70.213 Atherosclerosis of native arteries of extremities with intermittent claudication, bilateral legs; I70.229 Atherosclerosis of native arteries of extremities with rest pain, unspecified extremity; F17.210 Nicotine dependence, cigarettes, uncomplicated; I48.91 Unspecified atrial fibrillation; J45.909 Unspecified asthma, uncomplicated; N40.0 Benign prostatic hyperplasia without lower urinary tract symptoms; I25.10 Atherosclerotic heart disease of native coronary artery without angina pectoris; E11.40 Type 2 diabetes mellitus with diabetic neuropathy, unspecified; K21.9 Gastro-esophageal reflux disease without esophagitis; I25.2 Old myocardial infarction; E78.5 Hyperlipidemia, unspecified; I10 Essential (primary) hypertension; G47.33 Obstructive sleep apnea (adult) (pediatric); M06.9 Rheumatoid arthritis, unspecified; Z89.421 Acquired absence of other right toe(s); Z95.820 Peripheral vascular angioplasty status with implants and grafts; Z79.01 Long term (current) use of anticoagulants; Z95.1 Presence of aortocoronary bypass graft; Z95.2 Presence of prosthetic heart valve; Z89.512 Acquired absence of left leg below knee; Z96.651 Presence of right artificial knee joint; Z89.411 Acquired absence of right great toe; Z88.0 Allergy status to penicillin; Z88.2 Allergy status to sulfonamides; Z79.4 Long term (current) use of insulin
CPT/HCPCS: 76937; 85347; 99152; 99153; C1725; C1760; C1769; C1887; C1894; C2623; J1644; J2250; J3010; J7030; J7040; Q9967

== ENCOUNTER → 2022-12-05 | Outpatient (CLI) | payer OTHER | LOC: PLD 07:20 → LAB SHORT 07:20 → LAB 07:20 | DX: L95.9 Vasculitis limited to the skin, unspecified (principal) | CPT/HCPCS: 88312 ==

== ENCOUNTER 2023-10-19 04:37 | Inpatient (IN) | payer OTHER ==
[~2023-10-19] VITALS: Ht 182.9 cm; Wt 81.3 kg
[2023-10-19] VITALS (7 sets, daily range): BP systolic 120–167; BP diastolic 45–92
[2023-10-19 05:21] LABS: Source, Urine Clean Catch
[2023-10-19 05:26] LABS: BASOPHILS ABSOLUTE AUTO 0.03 K/mm3 (0.00-0.23); BASOPHILS PERCENT AUTO 0 % (0-2); EOSINOPHILS ABSOLUTE AUTO 0.14 K/mm3 (0.00-0.68); EOSINOPHILS PERCENT AUTO 1 % (0-6); Hematocrit 47.1 % (37.0-53.0); Hemoglobin 15.1 g/dL (13.5-17.5); IMMATURE GRAN ABSOLUTE AUTO 0.06 K/mm3 (0.00-0.10); IMMATURE GRAN PERCENT AUTO 0 % (0-1); LYMPHOCYTES ABSOLUTE AUTO 0.51 K/mm3 (0.84-5.20); LYMPHOCYTES PERCENT AUTO 4 % (21-46); MONOCYTES ABSOLUTE AUTO 0.77 K/mm3 (0.16-1.47); MONOCYTES PERCENT AUTO 6 % (4-13); Mean Corpuscular HGB 30.1 pg (26.0-34.0); Mean Corpuscular HGB Conc 32.1 g/dL (31.5-36.5); Mean Corpuscular Volume 94 fL (80-100); Mean Platelet Volume 11.9 fL (9.1-12.4); NEUTROPHILS ABSOLUTE AUTO 12.32 K/mm3 (1.96-9.15); NEUTROPHILS PERCENT AUTO 89 % (41-73); NRBC ABSOLUTE 0.03 K/mm3 (0.00-0.02); NRBC Auto 0.2 /100 WBC (0.0-0.2); Platelet Count 92 K/mm3 (150-400); RDW Coefficient Variation 15.6 % (11.7-14.2); RDW Standard Deviation 49.7 fL (35.1-46.3); Red Blood Cell Count 5.01 M/mm3 (4.30-5.90); White Blood Cell Count 13.83 K/mm3 (4.00-11.30)
[2023-10-19 05:35] LABS: Appearance, Urine Clear (Clear); Bilirubin, Urine Neg (Neg); Blood, Urine Neg (Neg); Color, Urine Yellow (P-Yellow); Glucose Qualitative, Urine Neg (Neg); Ketones, Urine Neg (Neg); Leukocyte Esterase, Urine Neg (Neg); Nitrite, Urine Neg (Neg); Protein, Urine 1+ (Neg); Specific Gravity, Urine 1.015 (1.003-1.022); Urobilinogen, Urine NORM (Normal)
[2023-10-19 05:50] LABS: Alanine Aminotransfer (ALT/SGP 27 U/L (12-78); Albumin, Blood 3.3 g/dL (3.4-5.0); Albumin/Globulin Ratio 0.7 (0.8-1.8); Alk Phos 155 U/L (50-136); Anion Gap 3 mmol/L (6-16); Aspartate Aminotrans (AST/SGOT 27 U/L (12-37); Bilirubin, Total 0.5 mg/dL (0.1-1.0); Blood Urea Nitrogen 80 mg/dL (8-24); Bun/Creatinine Ratio 19.9 (12.0-20.0); CO2, Blood 21 mmol/L (21-32); Calcium, Blood 8.8 mg/dL (8.5-10.1); Chloride, Blood 113 mmol/L (98-108); Creatinine, Blood 4.02 mg/dL (0.60-1.20); Ethanol (Alcohol), Blood, Med <3 mg/dL; Globulin, Blood 4.5 g/dL (2.2-4.0); Glomerular Filtration Rate 15 (60-); Glucose, Blood 181 mg/dL (70-99); Potassium, Blood 5.9 mmol/L (3.5-5.5); Sodium, Blood 137 mmol/L (136-145); Total Protein, Blood 7.8 g/dL (6.4-8.2)
[2023-10-19 05:52] LABS: U Amphetamine Screen Not Detected; U Barbituate Screen Not Detected; U Benzodiazapine Screen Not Detected; U Buprenorphine Screen Not Detected; U Cannabinoids Screen Not Detected; U Cocaine Screen Not Detected; U Methadone Screen Not Detected; U Methamphetamine Screen Not Detected; U Opiates Screen Not Detected; U Oxycodone Screen DETECTED; U Phencyclidine Screen Not Detected
[2023-10-19] MEDS ORDERED: CLOP75 PO (05:58)
[2023-10-19] MEDS ORDERED: CATAPRES-TTS 11 EAC1 TOP (05:58)
[2023-10-19] MEDS ORDERED: ELIQUIS5 M2 PO (05:58)
[2023-10-19] MEDS ORDERED: DOCU100 PO ×2 (05:58→14:19)
[2023-10-19] MEDS ORDERED: FINA5 PO (05:59)
[2023-10-19] MEDS ORDERED: MIRALAX17 GM PO (05:59)
[2023-10-19] MEDS ORDERED: LISI5 PO (05:59)
[2023-10-19] MEDS ORDERED: EYE ALLERGY ITCH5 ML OP (06:00)
[2023-10-19] MEDS ORDERED: PSYSENPA PO (06:00)
[2023-10-19] MEDS ORDERED: SERTRALINE HCL PO (06:00)
[2023-10-19] MEDS ORDERED: BUSP5 PO (06:01)
[2023-10-19] MEDS ORDERED: TRAZ50 PO (06:02)
[2023-10-19 06:05] LABS: Uric Acid, Blood 11.1 mg/dL (3.5-7.2)
[2023-10-19] MEDS ORDERED: Sodium Zirconium Cyclosilicate 10 GM Packet PO ONE (06:15)
[2023-10-19] MEDS ORDERED: Dextrose 50% 50 ML Vial IV ONE (06:15)
[2023-10-19] MEDS ORDERED: Sodium Bicarb 8.4% 1 MEQ/ML 50 ML Vial IV ONE (06:15)
[2023-10-19] MEDS ORDERED: Calcium Gluconate 10% 100 MG/ML INJ IV ONE (06:15)
[2023-10-19] MEDS ORDERED: NS 1,000 ML IV SCH ×3 (06:15→14:35)
[2023-10-19] MEDS ORDERED: Insulin Regular 100 Unit/ML 1ML Dose IV ONE (06:15)
[2023-10-19] MEDS ORDERED: Albuterol 2.5 MG/3 ML VIAL INH SCH (06:15)
[2023-10-19 06:18] LABS: Phosphorus, Blood 5.9 mg/dL (2.5-4.9)
[2023-10-19] MEDS ORDERED: Dextrose 50% 50 ML Syringe IV ONE (06:20)
[2023-10-19] MEDS ORDERED: Acetaminophen 325 MG TABLET PO PRN (06:30)
[2023-10-19] MEDS ORDERED: FLU VACC QS2023-24(6MOS UP)/PF 60 MCG/0.5 ML SYRINGE IM ONE (06:30)
[2023-10-19 06:46] LABS: Base Excess Venous -13.4 mmol/L; Bicarbonate Venous 14.8 mmol/L (24.0-30.0); PCO2 Venous 38.7 mmHg (38-42); pH Blood Venous 7.19 (7.34-7.37)
[2023-10-19] MEDS ORDERED: CloNIDine HCL 0.1 MG Patch TOP SCH (07:05)
[2023-10-19] MEDS ORDERED: Carvedilol 6.25 MG Tab PO SCH (08:00)
[2023-10-19] MEDS ORDERED: Sertraline HCl 100 MG Tab PO SCH (09:00)
[2023-10-19] MEDS ORDERED: BusPIRone HCl 10 MG Tab PO SCH (09:00)
[2023-10-19] MEDS ORDERED: Heparin Sodium,Porcine 5,000 UNIT/0.5 ML SDV SC SCH (09:00)
[2023-10-19] MEDS ORDERED: Polyethylene Glycol 3350 17 gm PO SCH (09:00)
[2023-10-19] MEDS ORDERED: Apixaban 5 MG Tab PO SCH (09:00)
[2023-10-19] MEDS ORDERED: Docusate Sodium 100 MG Cap PO SCH (09:00)
[2023-10-19] MEDS ORDERED: Clopidogrel Bisulfate 75 MG Tab PO SCH (09:00)
[2023-10-19] MEDS ORDERED: Finasteride 5 MG Tab PO SCH (09:00)
--- NOTE | 2023-10-19 09:00 | NUR ---
PT ADMITTED TO ICU 15 FROM ER MEDICAL STATUS. PT NOT ANSWERING QUESTIONS OR FOLLOWING COMMANDS. ABLE TO SAY "WHAT ARE WE DOING?" REPEATEDLY, BUT OTHERWISE ONLY SAYS FEW JUMBLED WORDS. PUPILS ARE FIXED, IN HX NOTED EYE SURGERY. NO FAMILY PRESENT AT THIS TIME.
[2023-10-19 10:00] LABS: Influenza A, PCR NEGATIVE (NEGATIVE); Influenza B, PCR NEGATIVE (NEGATIVE); Resp Syncytial Virus, PCR NEGATIVE (NEGATIVE); SARS-Cov-2 (COVID-19) PCR, MMC NEGATIVE (NEGATIVE)
[2023-10-19 11:01] LABS: Bun/Creatinine Ratio 20.1 (12.0-20.0); Calcium, Blood 8.8 mg/dL (8.5-10.1); Creatinine, Blood 3.88 mg/dL (0.60-1.20); Potassium, Blood 4.8 mmol/L (3.5-5.5)
[2023-10-19] MEDS ORDERED: LACT PO (14:12)
[2023-10-19] MEDS ORDERED: SODBIC650 PO ×2 (14:13→14:15)
[2023-10-19] MEDS ORDERED: ACET325 PO (14:18)
[2023-10-19] MEDS ORDERED: VENL75ER PO (14:22)
[2023-10-19] MEDS ORDERED: FERSU300 PO (14:24)
[2023-10-19] MEDS ORDERED: FOLI1 PO (14:24)
[2023-10-19] MEDS ORDERED: LORA10ER PO (14:26)
[2023-10-19] MEDS ORDERED: PROCRIT40000 UNIT INJ (14:28)
[2023-10-19] MEDS ORDERED: ZYRTEC10 M2 PO (14:32)
[2023-10-19] MEDS ORDERED: SEROQUEL25 MG PO (14:35)
[2023-10-19 15:41] LABS: Base Excess Venous -11.3 mmol/L; Bicarbonate Venous 15.8 mmol/L (24.0-30.0); PCO2 Venous 41.6 mmHg (38-42)
[2023-10-19 15:42] LABS: Bun/Creatinine Ratio 19.3 (12.0-20.0); Calcium, Blood 8.6 mg/dL (8.5-10.1); Creatinine, Blood 3.88 mg/dL (0.60-1.20); Potassium, Blood 5.4 mmol/L (3.5-5.5)
--- NOTE | 2023-10-19 18:19 | NUR ---
SUMMARY PT ALERT, ORIENTED TO SELF ONLY, [place]. WHEN ASKED WHERE HE IS HE STATES "[facility]". ABLE TO FOLLOW COMMANDS. 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 L BKA, MOVES R FOOT AND LEG AND CAN ASSIST WITH TURNING IN BED. TONGUE MIDLINE WHEN PROTRUDED. R CORNER OF MOUTH SLIGHT DROOP BUT SMILE EQUAL. SCHNEIDER CATH WAS BOTHERING PT AND PT KEPT PULLING AT IT. REMOVED CATH. PT ABLE TO VOID VERY SMALL AMT AFTERWARDS, BLADDER SCAN THIS EVENING ONLY SHOWED 168ML. COLOSTOMY PUTTING OUT LOOSE BROWN STOOL. BED ALARM ARMED FOR SAFETY, PT HAS BEEN YELLING "NURSE" WHEN HE NEED ASSISTANCE.
--- NOTE | 2023-10-19 19:45 | NUR ---
ASSUMED CARE PT ALERT AND ORIENTED TO SELF AND SURROUNDINGS. UNDERSTANDS HE IS IN HOSPITAL, BUT DOES NOT KNOW WHERE. PT ABLE TO MAKE REQUESTS APPROPRIATELY, BUT CALLS OUT "NURSE" INSTEAD OF USING CALL LIGHT. PT RESTING QUIETLY AT THIS TIME.
--- NOTE | 2023-10-19 20:30 | NUR ---
UPDATE PT IS A&O X3; STATES HE'S IN [facility], AND THAT IT'S 2023. INITIALLY, PT APPEARED TO BE ONLY ORIENTED TO SELF AND SURROUNDINGS, BUT THIS MAY BE D/T [place]. HAD TO SIGNIFICANTLY RAISE VOICE TO GET PT TO HEAR QUESTIONS CLEARLY.
[2023-10-19] MEDS ORDERED: HydrALAZINE HCl 20 MG / ML 1ML Vial IV PRN (20:40)
[2023-10-19] MEDS ORDERED: TraZODone HCl 50 MG Tab PO SCH (21:00)
[2023-10-19] MEDS ORDERED: Tamsulosin HCl 0.4 MG Cap PO SCH (21:00)
[2023-10-19] MEDS ORDERED: Atorvastatin 10 MG Tab PO SCH (21:00)
--- NOTE | 2023-10-19 22:34 | NUR ---
UPDATE SOME INTERMITTENT CONFUSION, BUT EASILY REDIRECTABLE. CONTINUES TO BE ORIENTED TO SELF, PLACE, YEAR.
[2023-10-20] VITALS (7 sets, daily range): BP systolic 102–182; BP diastolic 41–79
[2023-10-20] MEDS ORDERED: Nicotine 21 MG PATCH TOP SCH (01:10)
[2023-10-20 03:50] LABS: BASOPHILS ABSOLUTE AUTO 0.03 K/mm3 (0.00-0.23); BASOPHILS PERCENT AUTO 0 % (0-2); EOSINOPHILS ABSOLUTE AUTO 0.03 K/mm3 (0.00-0.68); EOSINOPHILS PERCENT AUTO 0 % (0-6); Hematocrit 41.1 % (37.0-53.0); IMMATURE GRAN ABSOLUTE AUTO 0.13 K/mm3 (0.00-0.10); IMMATURE GRAN PERCENT AUTO 1 % (0-1); LYMPHOCYTES ABSOLUTE AUTO 0.87 K/mm3 (0.84-5.20); LYMPHOCYTES PERCENT AUTO 5 % (21-46); MONOCYTES ABSOLUTE AUTO 0.88 K/mm3 (0.16-1.47); MONOCYTES PERCENT AUTO 5 % (4-13); Mean Corpuscular HGB 30.1 pg (26.0-34.0); Mean Corpuscular HGB Conc 31.6 g/dL (31.5-36.5); Mean Corpuscular Volume 95 fL (80-100); Mean Platelet Volume 12.3 fL (9.1-12.4); NEUTROPHILS ABSOLUTE AUTO 16.23 K/mm3 (1.96-9.15); NEUTROPHILS PERCENT AUTO 89 % (41-73); Platelet Count 77 K/mm3 (150-400); RDW Coefficient Variation 15.8 % (11.7-14.2); RDW Standard Deviation 51.4 fL (35.1-46.3); Red Blood Cell Count 4.32 M/mm3 (4.30-5.90); White Blood Cell Count 18.17 K/mm3 (4.00-11.30)
[2023-10-20 04:13] LABS: Bun/Creatinine Ratio 20.6 (12.0-20.0); Calcium, Blood 8.7 mg/dL (8.5-10.1); Creatinine, Blood 3.35 mg/dL (0.60-1.20); Free Thyroxine 1.16 ng/dL (0.70-1.60); Magnesium, Blood 2.3 mg/dL (1.6-2.4); Phosphorus, Blood 4.6 mg/dL (2.5-4.9); Potassium, Blood 5.4 mmol/L (3.5-5.5)
--- NOTE | 2023-10-20 05:56 | NUR ---
SHIFT SUMMARY PT REMAINS ORIENTED X3, BUT HAS BECOME MORE IMPULSIVE THIS AM. REDIRECTABLE, BUT HAS ATTEMPTED TO GET OOB TWICE THIS AM. MEDICATED W/ HYDRALAZINE PER EMAR ONCE THIS SHIFT. PT CONTINUES TO USE URINAL APPROPRIATELY. PT IS SIGNIFICANTLY [place] AND REQUIRES ALMOST YELLING DIRECTLY INTO HIS EAR FOR PT TO HEAR. NO OTHER ACUTE EVENTS THIS EVENING.
[2023-10-20] MEDS ORDERED: Pantoprazole Sodium 40 MG Tab PO SCH (06:00)
[2023-10-20] MEDS ORDERED: QUEtiapine Fumarate 25 MG Tab PO ONE (10:35)
[2023-10-20] MEDS ORDERED: QUEtiapine Fumarate 25 MG Tab PO PRN (10:35)
--- NOTE | 2023-10-20 10:37 | NUR ---
PT IS REPEATEDLY TRYING TO CLIMB OUT OF BED. BED ALARM ON AND SENSITIVITY ADJUSTED, BUT PT IS STILL MAKING IT TO THE EDGE OF THE BED BEFORE STAFF CAN GET IN THE ROOM. NO 1:1 SITTERS AVAILABLE. PT IS EXTREMEMLY HARD OF HEARING SO AVASURE MONITOR WILL NOT WORK. DR. LAGUERRE NOTIFIED AND ORDER FOR VEST RESTRAINT RECEIVED AND ORDERS FOR SEROQUEL WELL.
--- NOTE | 2023-10-20 12:25 | NUR ---
REASSESSMENT PT CONTINUES TO BE ORIENTED ONLY TO HIMSELF. HE IS CONTINUES TO TRY AND GET OOB EVEN THOUGH THE VEST IS ON. HE HAS BEEN PULLING ON THE STRAPS TRYING TO FIGURE OUT HOW TO RELEASE THEM. WHEN ASKED WHY HE SAYS A VARIETY OF DIFFERENT PLACES TO GO OR PEOPLE TO MEET. LUNGS REMAIN CLEAR, RA. BP STABLE. HE IS VOIDING USING THE URINAL, BUT ONLY GOING SMALL AMTS SO WILL BLADDER SCAN AFTER PT IS DONE EATING LUNCH. SPOKE WITH PT'S DAUGHTER THIS MORNING AND PROVIDED UPDATE. CONTINUING TO MONITOR.
[2023-10-20] MEDS ORDERED: Sodium Bicarb 8.4% Inj 100 MEQ in Sodium Chloride 0.45% 1,000 ML IV SCH (13:00)
[2023-10-20] MEDS ORDERED: CefTRIAXone Sodium 2,000 MG in NS 100 ML IV SCH (13:00)
[2023-10-20] MEDS ORDERED: Thiamine HCl 500 MG in NS 100 ML IV SCH (14:00)
[2023-10-20 15:58] LABS: Base Excess Venous -12.6 mmol/L; Bicarbonate Venous 14.9 mmol/L (24.0-30.0); PCO2 Venous 36.8 mmHg (38-42); pH Blood Venous 7.22 (7.34-7.37)
--- NOTE | 2023-10-20 17:34 | NUR ---
SHIFT SUMMARY PT REMAINED ORIENTED ONLY TO HIMSELF THIS SHIFT. HIS CONFUSION PERSISTED WITH ONGOING ATTEMPTS TO GET OUT OF BED, EVEN ONCE HE HAD THE VEST RESTRAINT ON. LUNGS ARE CLEAR ON THE R, A LITTLE COARSE ON THE L, SPO2 REMAINS IN HIGH 90S ON RA, NONPRODUCTIVE COUGH. SR, BP STABLE. PT VOIDS SMALL AMTS AT A TIME, BUT POST VOID RESIDUAL WAS ONLY 142ML. PT IS DRINKING FLUIDS, BUT ONLY ATE A FEW BITES OF DINNER, EVEN WITH ASSISTANCE. OSTOMY DRIANING LOOSE, BROWN/YELLOW STOOL. PT'S RENATA CALLED TWICE AND WAS UPDATED.
--- NOTE | 2023-10-20 19:27 | NUR ---
ASSUMED CARE PT IS RESTING QUIETLY IN BED; NOT PULLING AT RESTRAINTS. VSS AT THIS TIME.
--- NOTE | 2023-10-20 20:29 | NUR ---
UPDATE PT ORIENTED TO SELF ONLY AT THIS TIME. MORE DIFFICULT TO REDIRECT THAN PREVIOUS SHEET METAL HELPER FOR THIS RN. AWAKE FOR 20~ MINUTES ATTEMPTING TO GET OOB, BUT IS NOW RESTING QUIETLY. STILL APPEARS TO ANSWER QUESTIONS APPROPRIATELY AND DENIED NEED FOR URINAL AT THIS TIME.
[2023-10-20] MEDS ORDERED: Sodium Bicarb 8.4% 1 MEQ/ML 50 ML Vial ONE (23:58)
--- NOTE | 2023-10-21 01:09 | NUR ---
UPDATE PT PACER FAILED TO CAPTURE 6-7 BEATS. STRIP PRINTED AND IN CHART. BLOOD PRESURE STABLE. WILL CONTINUE TO MONITOR.
--- NOTE | 2023-10-21 01:52 | NUR ---
UPDATE PT IS NOW ORIENTED TO SELF, PLACE, AND YEAR. REQUESTING URINAL AND RESTING QUIETLY IN BED AT THIS TIME.
[2023-10-21 04:00] VITALS: BP 122/46
[2023-10-21 04:16] LABS: PCO2 Venous 36.4 mmHg (38-42); pH Blood Venous 7.28 (7.34-7.37)
[2023-10-21 04:17] LABS: Base Excess Venous -9.9 mmol/L; Bicarbonate Venous 16.7 mmol/L (24.0-30.0)
[2023-10-21 04:22] LABS: BASOPHILS ABSOLUTE AUTO 0.04 K/mm3 (0.00-0.23); BASOPHILS PERCENT AUTO 0 % (0-2); EOSINOPHILS ABSOLUTE AUTO 0.03 K/mm3 (0.00-0.68); EOSINOPHILS PERCENT AUTO 0 % (0-6); Hematocrit 36.8 % (37.0-53.0); Hemoglobin 11.5 g/dL (13.5-17.5); IMMATURE GRAN ABSOLUTE AUTO 0.32 K/mm3 (0.00-0.10); IMMATURE GRAN PERCENT AUTO 2 % (0-1); LYMPHOCYTES ABSOLUTE AUTO 1.03 K/mm3 (0.84-5.20); LYMPHOCYTES PERCENT AUTO 6 % (21-46); MONOCYTES ABSOLUTE AUTO 0.93 K/mm3 (0.16-1.47); MONOCYTES PERCENT AUTO 6 % (4-13); Mean Corpuscular HGB 29.9 pg (26.0-34.0); Mean Corpuscular HGB Conc 31.3 g/dL (31.5-36.5); Mean Corpuscular Volume 96 fL (80-100); Mean Platelet Volume 12.3 fL (9.1-12.4); NEUTROPHILS ABSOLUTE AUTO 14.39 K/mm3 (1.96-9.15); NEUTROPHILS PERCENT AUTO 86 % (41-73); Platelet Count 73 K/mm3 (150-400); RDW Coefficient Variation 16.2 % (11.7-14.2); RDW Standard Deviation 53.6 fL (35.1-46.3); Red Blood Cell Count 3.85 M/mm3 (4.30-5.90); White Blood Cell Count 16.74 K/mm3 (4.00-11.30)
[2023-10-21 05:08] LABS: Bun/Creatinine Ratio 21.1 (12.0-20.0); Calcium, Blood 8.6 mg/dL (8.5-10.1); Creatinine, Blood 2.94 mg/dL (0.60-1.20); Potassium, Blood 4.5 mmol/L (3.5-5.5)
--- NOTE | 2023-10-21 06:12 | NUR ---
SHIFT SUMMARY PT RESTED QUIETLY FOR MOST OF NIGHT W/ OCCASIONAL WAKING TO ASK FOR URINAL. REDIRECTABLE; CONFUSED WHEN WAKING. MENTATION APPEARS UNCHANGED FROM LAST NOTE. THIS MORNING PT HAD HEMOPTYSIS WHEN COUGHING INTO TISSUE. NO ADDITIONAL FAILURE TO CAPTURE BEATS NOTED. NO OTHER ACUTE EVENTS THIS EVNING.
[2023-10-21 08:00] VITALS: BP 141/47
--- NOTE | 2023-10-21 12:14 | NUR ---
REASSESSMENT PT HAS CONTINUED TO BE ALERT AND ORIENTED THIS MORNING. HE IS CONVERSING APPROPRIATELY AND VERY DIRECTABLE. HIS LUNGS STILL HAVE A LITTEL COARSENESS, BUT CLEAR WITH COUGHING. REMAINS ON RA WITH SPO2 IN HIGH 90S. V-PACED, BP STABLE. HE IS EATING INDEPENDENTLY. OSTOMY HAS HAD A MODERATE AMT OF OUTPUT THIS MORNING. PT'S RENATA CALLED AND WAS UPDATED, AND THEN CAME BY TO VISIT PT. CONTINUING TO MONITOR.
[2023-10-21 12:47] VITALS: BP 129/47
[2023-10-21] MEDS ORDERED: Thiamine HCl 500 MG in NS 100 ML IV SCH (16:00)
[2023-10-21 16:08] VITALS: BP 138/63
--- NOTE | 2023-10-21 17:23 | NUR ---
SHIFT SUMMARY PT REMAINED ALERT AND ORIENTED THROUGHOUT THE DAY. HIS LUNGS CONTINUE TO BE CLEAR, AND MAINTAIN SPO2 IN THE ID 90S ON RA. V-PACED, BP STABLE. EATING AND DRINKING WITHOUT DIFFICULTY. VOIDING USING THE URINAL. OSTOMY WITH LIQUID OUTPUT TODAY. CONTINUING TO MONITOR.
[2023-10-21 19:47] VITALS: BP 147/56
--- NOTE | 2023-10-21 20:44 | NUR ---
ASSUMPTION OF CARE: RECEIVED REPORT FROM DAV VELASCO. PT ALERT AND ORIENTED, ABLE TO ANSWER QUESTIONS AND MAKE NEEDS KNOWN, ALTHOUGH PT VERY HARD OF HEARING. PT ON RA WITH SPO2 >95%. DENIES SOB. PT HAS THICK, YELLOWISH SECRETIONS THAT HE IS ABLE TO COUGH UP. 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 DENIES CHEST PAIN OR PRESSURE. COLOSTOMY TO RIGHT ABDOMEN, DRAINING BROWN LIQUID STOOL. ABLE TO VOID INTO URINAL IND. BICARB AT 100 ML/HR. PIV TO LAC PATENT. PT TOLERATING PO INTAKE WELL. ABLE TO SHIFT AROUND IN BED WITH MINIMAL ASSIST. BED LOW AND LOCKED, CALL LIGHT IN REACH.
[2023-10-22 04:31] LABS: Bun/Creatinine Ratio 20.8 (12.0-20.0); Calcium, Blood 8.2 mg/dL (8.5-10.1); Creatinine, Blood 2.84 mg/dL (0.60-1.20); Potassium, Blood 3.8 mmol/L (3.5-5.5)
[2023-10-22 04:48] VITALS: BP 151/59
--- NOTE | 2023-10-22 05:48 | NUR ---
SHIFT SUMMARY: PT MEDICAL NO TELE. REMAINS ALERT AND ORIENTED T/O THE SHIFT. CALLS APPROPRIATELY, MAKES NEEDS KNOWN. PT ON RA, DENIES SOB. PT VENTRICULAR PACED WITH HR 60'S WHILE ON TELE, SBP 150'S. DENIES CHEST PAIN/PRESSURE. BICARB INFUSING AT 100 ML/HR. PIV TO LAC, INTACT AND INFUSING. PT ABLE TO STAND AND PIVOT TO THE BEDSIDE COMMODE WITH ASSISTANCE. USES URINAL INDEPENDENTLY. TOLERATING PO INTAKE WELL. PT UNABLE TO SLEEP T/O THE NIGHT, STATES HE JUST COULD NOT TURN HIS MIND OFF. COLOSTOMY TO RIGHT ABDOMEN, PUTTING OUT LIQUID/SOFT BROWN STOOL. ABLE TO SHIFT IN THE BED WITH MINIMAL ASSIST. BED LOW AND LOCKED CALL LIGHT IN REACH.
[2023-10-22 08:10] VITALS: BP 160/70
[2023-10-22] MEDS ORDERED: Lactobacil 2-S.Thermo-Bifido 1 1 Cap PO SCH (09:35)
[2023-10-22 14:30] VITALS: BP 160/60
[2023-10-22] MEDS ORDERED: DOXY100 PO (15:14)
[2023-10-22] MEDS ORDERED: NICO21TP TOP (15:14)
[2023-10-22] MEDS ORDERED: VISBIOME 112.51 EACH PO (15:14)
--- NOTE | 2023-10-22 15:55 | NUR ---
DISCHARGE SUMMARY: PATIENT ALERT AND ORIENTED THROUGHOUT THE SHIFT. SOME STML NOTED. PATIENT'S DAUGHTER REPORTS THIS IS HIS BASELINE. PATIENT FOLLOWING DIRECTIONS AND ABLE TO MAKE HIS NEEDS KNOWN. PATIENT STAND PIVOT TO THE CHAIR AND BSC. PATIENT AND DAUGHTER REPORT THEY HAVE ALL THE EQUIPMENT AT HOME THAT THEY NEED. PER ORDERS, PATIENT READY FOR DISCHARGE. PATIENT DENIED CHEST PAIN THROUGHOUT THE SHIFT. PATIENT STABLE ON ROOM AIR. NO SHORTNESS OF BREATH AT REST OR WITH ACTIVITY NOTED. DISCHARGE RX FAXED TO [facility] PER PATIENT REQUEST. DISCHARGE INSTRUCTIONS AND EDUCATION PROVIDED TO THE PATIENT AND HIS DAUGHTER. ALL QUESTIONS AND CONCERNS ADDRESSED AT THIS TIME. PATIENT DISCHARGED IN WHEELCHAIR WITH TECH AND DAUGHTER. PATIENT STABLE AT TIME OF DISCHARGE.
== END 2023-10-22 16:00 | disposition home or self-care (01) | DRG 682 ==
LOC: ER 04:37 → ERHOLD 04:38 → ICUE 04:38
PROVIDERS: Emergency Medicine; Internal Medicine; Student in an Organized Health Care Education/Training Program; ADMIT Internal Medicine
PROC: HZ2ZZZZ Detoxification Services for Substance Abuse Treatment (ICD-10-PCS; principal; 2023-10-20)
DX: N17.9 Acute kidney failure, unspecified (principal); A41.9 Sepsis, unspecified organism; G92.8 Other toxic encephalopathy; J18.9 Pneumonia, unspecified organism; I13.0 Hypertensive heart and chronic kidney disease with heart failure and stage 1 through stage 4 chronic kidney disease, or unspecified chronic kidney disease; J44.0 Chronic obstructive pulmonary disease with (acute) lower respiratory infection; I50.42 Chronic combined systolic (congestive) and diastolic (congestive) heart failure; E87.20 Acidosis, unspecified; I48.0 Paroxysmal atrial fibrillation; E87.5 Hyperkalemia; N18.4 Chronic kidney disease, stage 4 (severe); K21.9 Gastro-esophageal reflux disease without esophagitis; E11.22 Type 2 diabetes mellitus with diabetic chronic kidney disease; N40.0 Benign prostatic hyperplasia without lower urinary tract symptoms; G47.33 Obstructive sleep apnea (adult) (pediatric); F17.210 Nicotine dependence, cigarettes, uncomplicated; E11.65 Type 2 diabetes mellitus with hyperglycemia; I25.10 Atherosclerotic heart disease of native coronary artery without angina pectoris; T40.715A Adverse effect of cannabis, initial encounter; Z88.0 Allergy status to penicillin; Z88.2 Allergy status to sulfonamides; Z88.8 Allergy status to other drugs, medicaments and biological substances; Z79.01 Long term (current) use of anticoagulants; Z79.811 Long term (current) use of aromatase inhibitors; Z79.899 Other long term (current) drug therapy; Z79.02 Long term (current) use of antithrombotics/antiplatelets; Z79.4 Long term (current) use of insulin; E11.51 Type 2 diabetes mellitus with diabetic peripheral angiopathy without gangrene; E11.42 Type 2 diabetes mellitus with diabetic polyneuropathy; Z89.512 Acquired absence of left leg below knee; Z89.421 Acquired absence of other right toe(s); Z98.890 Other specified postprocedural states; Z96.653 Presence of artificial knee joint, bilateral; Z93.3 Colostomy status; Z95.0 Presence of cardiac pacemaker; Z95.1 Presence of aortocoronary bypass graft
CPT/HCPCS: 0241U; 36415; 51702; 70450; 71045; 72125; 80048; 80053; 82140; 82550; 82803; 82947; 83605; 83735; 84100; 84145; 84439; 84550; 85025; 87040; 93005; 93010; 94644; 94664; 96361; 96361-59; 96365; 96367; 96374-59; 96375; 96375-59; 96376; 99285-25; A9270; G0378; J0360; J0612; J0696; J1815; J3411; J7030; J7799

== ENCOUNTER 2023-11-05 21:43 | Inpatient (IN) | payer OTHER ==
[~2023-11-05] VITALS: Ht 182.9 cm; Wt 78.0 kg
[~2023-11-05 21:43] MED LIST changes: +BUSP5 PO; +CATAPRES-TTS 11 EAC1 TOP; +ELIQUIS5 M2 PO; +EYE ALLERGY ITCH5 ML OP; +FINA5 PO; +LACT PO; +LISI5 PO; +LORA10ER PO; +MIRALAX17 GM PO; +PROCRIT40000 UNIT INJ; +PSYSENPA PO; +SEROQUEL25 MG PO; +SERTRALINE HCL PO; +SODBIC650 PO; +ZYRTEC10 M2 PO
[2023-11-05 23:10] LABS: BASOPHILS ABSOLUTE AUTO 0.03 K/mm3 (0.00-0.23); BASOPHILS PERCENT AUTO 0 % (0-2); EOSINOPHILS ABSOLUTE AUTO 0.05 K/mm3 (0.00-0.68); EOSINOPHILS PERCENT AUTO 0 % (0-6); Hematocrit 44.3 % (37.0-53.0); IMMATURE GRAN PERCENT AUTO 1 % (0-1); LYMPHOCYTES PERCENT AUTO 8 % (21-46); MONOCYTES ABSOLUTE AUTO 1.04 K/mm3 (0.16-1.47); MONOCYTES PERCENT AUTO 8 % (4-13); Mean Corpuscular HGB 29.2 pg (26.0-34.0); Mean Corpuscular HGB Conc 31.6 g/dL (31.5-36.5); Mean Corpuscular Volume 93 fL (80-100); Mean Platelet Volume 12.3 fL (9.1-12.4); NEUTROPHILS ABSOLUTE AUTO 10.93 K/mm3 (1.96-9.15); NEUTROPHILS PERCENT AUTO 83 % (41-73); NRBC ABSOLUTE 0.02 K/mm3 (0.00-0.02); NRBC Auto 0.2 /100 WBC (0.0-0.2); Platelet Count 111 K/mm3 (150-400); RDW Coefficient Variation 16.2 % (11.7-14.2); RDW Standard Deviation 53.9 fL (35.1-46.3); Red Blood Cell Count 4.79 M/mm3 (4.30-5.90); White Blood Cell Count 13.15 K/mm3 (4.00-11.30)
[2023-11-05] MEDS ORDERED: NS 1,000 ML IV SCH (23:20)
[2023-11-05 23:30] LABS: International Normalized Ratio 1.17; Prothrombin Time Results 12.2 Sec (9.7-11.5)
[2023-11-06 01:34] LABS: Magnesium, Blood 2.4 mg/dL (1.6-2.4)
[2023-11-06] MEDS ORDERED: NS 1,000 ML IV SCH (02:00)
[2023-11-06 02:15] LABS: Albumin/Globulin Ratio 0.8 (0.8-1.8); Bilirubin, Total 0.6 mg/dL (0.1-1.0); Bun/Creatinine Ratio 22.7 (12.0-20.0); Calcium, Blood 8.3 mg/dL (8.5-10.1); Creatinine, Blood 4.36 mg/dL (0.60-1.20); Globulin, Blood 3.9 g/dL (2.2-4.0); Potassium, Blood 6.9 mmol/L (3.5-5.5); Total Protein, Blood 6.9 g/dL (6.4-8.2)
[2023-11-06] MEDS ORDERED: Dextrose 50% 50 ML Vial IV ONE (02:15)
[2023-11-06] MEDS ORDERED: Insulin Regular 100 Unit/ML 1ML Dose IV ONE (02:15)
[2023-11-06] MEDS ORDERED: Furosemide 10 MG/ML 10ML Vial IV ONE (02:20)
[2023-11-06] MEDS ORDERED: Sodium Zirconium Cyclosilicate 10 GM Packet PO ONE (02:20)
[2023-11-06] MEDS ORDERED: Dextrose 50% 50 ML Syringe IV ONE (02:20)
[2023-11-06] MEDS ORDERED: Calcium Gluconate 10% 100 MG/ML INJ IV ONE ×2 (02:30)
[2023-11-06 02:40] LABS: Source, Urine Clean Catch
[2023-11-06 02:40] LABS: Influenza A, PCR NEGATIVE (NEGATIVE); Influenza B, PCR NEGATIVE (NEGATIVE); Resp Syncytial Virus, PCR NEGATIVE (NEGATIVE); SARS-Cov-2 (COVID-19) PCR, MMC NEGATIVE (NEGATIVE)
[2023-11-06 02:45] LABS: Bilirubin, Urine Neg (Neg); Blood, Urine Neg (Neg); Glucose Qualitative, Urine Neg (Neg); Ketones, Urine Neg (Neg); Leukocyte Esterase, Urine Neg (Neg); Nitrite, Urine Neg (Neg); Protein, Urine 1+ (Neg); Specific Gravity, Urine 1.015 (1.003-1.022); Urobilinogen, Urine NORM (Normal)
[2023-11-06 02:55] LABS: Appearance, Urine Clear (Clear); Color, Urine Yellow (P-Yellow)
[2023-11-06] MEDS ORDERED: FentaNYL Citrate 50 MCG/ML 2 ML Injection IV ONE (02:55)
[2023-11-06 03:00] LABS: Base Excess Venous -18.2 mmol/L; Bicarbonate Venous 11.6 mmol/L (24.0-30.0); PCO2 Venous 41.1 mmHg (38-42)
[2023-11-06 03:01] LABS: pH Blood Venous 7.07 (7.34-7.37)
[2023-11-06] MEDS ORDERED: FLU VACC QS2023-24(6MOS UP)/PF 60 MCG/0.5 ML SYRINGE IM ONE (03:05)
[2023-11-06] MEDS ORDERED: Ondansetron HCl 2 MG / ML 2ML Vial IV PRN (03:05)
[2023-11-06] MEDS ORDERED: Sodium Bicarb 8.4% Inj 100 MEQ in Sodium Chloride 0.45% 1,000 ML IV SCH (03:10)
[2023-11-06] MEDS ORDERED: Sodium Bicarb 8.4% 1 MEQ/ML 50 ML Vial IV ONE (03:25)
[2023-11-06 03:44] LABS: Bun/Creatinine Ratio 22.8 (12.0-20.0); Calcium, Blood 8.2 mg/dL (8.5-10.1); Creatinine, Blood 4.25 mg/dL (0.60-1.20); Potassium, Blood 6.9 mmol/L (3.5-5.5)
[2023-11-06 04:15] VITALS: BP 153/84
--- NOTE | 2023-11-06 06:26 | NUR ---
SHIFT SUMMARY PT INDEPENDENT IN ROOM. SLEPT FOR SHORT TIME LATE IN THE NIGHT. REMAINED AT BEDSIDE THROUGH THE NIGHT. HAD ONE EPISODE OF DARK BLOODY RECTAL DISCHARGE BUT OTHERWISE SCOPE PREP CLEAR RESULTS. EXPRESSES ANXIETY ABOUT BEING IN THE HOSPITAL AND CURRENT CONDITION BUT STATES HE HAS IT UNDER CONTROL WITH HIS PRESENT. DENIES PAIN OR NAUSEA. HAS BEEN NPO SINCE O400 FOR UPCOMING PROCEDURE.
--- NOTE | 2023-11-06 06:40 | NUR ---
PT ARRIVED TO ROOM 8 FROM ED VIA GURNEY. TRANSFERRED TO BED WITH 4 PERSON SLIDE. A/OX1. TALKING THROUGHOUT ASSESSMENT ATTEMPTING TO ANSWER QUESTION OF BIRTHDAY AND FIXATED ON YEAR ATTEMPTING TO "GET IT RIGHT". 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 SODIUM BICARB STARTED. DR. NERI NOTIFIED OF POTASSIUM CONTINUING TO BE AT 6.9. LOKELMA GIVEN ONCE PT ARRIVED TO FLOOR AND AFTER 2ND BLOOD DRAW FOR POTASSIUM. ALSO NOTIFIE OF [facility] OF 7.07 WITH NO NEW ORDERS. BOTH LABS RESULTED PRIOR TO ARRIVAL TO FLOOR. PT REPEATING HE NEEDS TO PEE AND SAYS YES HE UNDERSTANDS HE HAS A CATHETER AND IN THE SAME BREATH SAYS HE NEEDS TO PEE. BED ALARM ON FOR SAFETY. HAS A R HEARING AID IN. FOUND FIDDLING WITH CATHETER BAG A COUPLE TIMES. DOZING AT THIS TIME.
[2023-11-06 07:30] VITALS: BP 136/60
[2023-11-06 07:43] LABS: Bun/Creatinine Ratio 22.7 (12.0-20.0); Calcium, Blood 8.9 mg/dL (8.5-10.1); Creatinine, Blood 4.15 mg/dL (0.60-1.20)
[2023-11-06] MEDS ORDERED: Apixaban 5 MG Tab PO SCH (09:00)
[2023-11-06] MEDS ORDERED: Heparin Sodium,Porcine 5,000 UNIT/0.5 ML SDV SC SCH (09:00)
[2023-11-06] MEDS ORDERED: Albuterol HFA200 ACT/6.7 GM INH INH PRN (09:55)
[2023-11-06 11:32] LABS: Bun/Creatinine Ratio 23.2 (12.0-20.0); Calcium, Blood 8.7 mg/dL (8.5-10.1); Creatinine, Blood 4.1 mg/dL (0.60-1.20); Potassium, Blood 4.9 mmol/L (3.5-5.5)
[2023-11-06 11:33] VITALS: BP 139/58
--- NOTE | 2023-11-06 13:45 | NUR ---
JAIRO CONTINUES TO TALK IN HIS SLEEP, WHEN QUESTIONED HE ANSWERS THAT HE DOESNT NEED ANYTHING BUT REFERS TO "FAMILY PROBLEM THAT YOU CAN'T HELP ME WITH". CONTINUES WITH WET COUGH, NON PRODUCTIVE. SODIUM BICARB CONTINUES INFUSING. SCHNEIDER WITH GOOD URINE OUTPUT/RESPONSE TO EARLIER DOSE OF DIURETICS.
[2023-11-06] MEDS ORDERED: BusPIRone HCl 10 MG Tab PO SCH (14:00)
[2023-11-06 15:28] LABS: BASOPHILS ABSOLUTE AUTO 0.04 K/mm3 (0.00-0.23); BASOPHILS PERCENT AUTO 0 % (0-2); EOSINOPHILS ABSOLUTE AUTO 0.06 K/mm3 (0.00-0.68); EOSINOPHILS PERCENT AUTO 1 % (0-6); Hematocrit 42.1 % (37.0-53.0); Hemoglobin 13.5 g/dL (13.5-17.5); IMMATURE GRAN ABSOLUTE AUTO 0.07 K/mm3 (0.00-0.10); IMMATURE GRAN PERCENT AUTO 1 % (0-1); LYMPHOCYTES PERCENT AUTO 7 % (21-46); MONOCYTES ABSOLUTE AUTO 1.11 K/mm3 (0.16-1.47); MONOCYTES PERCENT AUTO 9 % (4-13); Mean Corpuscular HGB 29.4 pg (26.0-34.0); Mean Corpuscular HGB Conc 32.1 g/dL (31.5-36.5); Mean Corpuscular Volume 92 fL (80-100); Mean Platelet Volume 12.8 fL (9.1-12.4); NEUTROPHILS ABSOLUTE AUTO 10.58 K/mm3 (1.96-9.15); NEUTROPHILS PERCENT AUTO 83 % (41-73); Platelet Count 95 K/mm3 (150-400); RDW Coefficient Variation 16.4 % (11.7-14.2); RDW Standard Deviation 54.4 fL (35.1-46.3); Red Blood Cell Count 4.59 M/mm3 (4.30-5.90); White Blood Cell Count 12.76 K/mm3 (4.00-11.30)
[2023-11-06 15:56] LABS: Albumin, Blood 2.9 g/dL (3.4-5.0); Albumin/Globulin Ratio 0.8 (0.8-1.8); Bilirubin, Total 0.7 mg/dL (0.1-1.0); Bun/Creatinine Ratio 22.9 (12.0-20.0); Calcium, Blood 8.6 mg/dL (8.5-10.1); Creatinine, Blood 4.02 mg/dL (0.60-1.20); Globulin, Blood 3.7 g/dL (2.2-4.0); Potassium, Blood 5.1 mmol/L (3.5-5.5); Total Protein, Blood 6.6 g/dL (6.4-8.2)
[2023-11-06 16:00] VITALS: BP 148/54
--- NOTE | 2023-11-06 18:14 | NUR ---
HERACLIO HAS CONTINUED TO SLEEP T/O THE DAY. HE AWAKENS WHEN SPOKEN TO BUT ANSWERS QUESTIONS INCORRECTLY. HE MUMBLES OUTLOUD WHILE SLEEPING, UNABLE TO MAKE OUT WORDS. PT CONTINUES WITH MOIST COUGH, NON PRODUCTIVE. SCHNEIDER TO GRAVITY DRAINAGE WITH GOOD URINE OUTPUT. REMAINS NPO, DID COUGH HEAVILY AFTER MEDICATION ADMINISTRATION THIS AM. SMALL TABLET, UNABLE TO PROCESS THAT A STRAW WAS BEING PRESENTED TO HIM, HAD TO HAVE SEVERAL VERBAL CUES AND MADE TO OPEN HIS EYES TO SEE. HIS OSTOMY SITE REMAINS C/D/I WITH GOOD OUTPUT OF GREEN/ BROWN RETURN. LEFT BKA STUMP WITH GOOD COLOR AND TEMP, RIGHT FOOT WITH TOES ABSENT, GOOD PULSE NOTED, TEMPERATURE AND SKIN IS INTACT. IV CONTINUES @ 75ML/ HR NAHCO3. LABS HAVE IMPROVED THROUGHOUT THE DAY.
[2023-11-06] MEDS ORDERED: Sodium Bicarb 8.4% Inj 150 MEQ in Dextrose 5% 1,000 ML IV SCH (18:35)
[2023-11-06 20:30] VITALS: BP 163/54
[2023-11-06 20:53] LABS: Bun/Creatinine Ratio 23.6 (12.0-20.0); Calcium, Blood 8.4 mg/dL (8.5-10.1); Creatinine, Blood 3.9 mg/dL (0.60-1.20)
--- NOTE | 2023-11-06 20:57 | NUR ---
CALLED DR. HOGUE TO UPDATE ON 2000 LABS. PROVIDED CURRENT VALUES. NO ORDERS OR CHANGES AT THIS TIME
[2023-11-06] MEDS ORDERED: TraZODone HCl 50 MG Tab PO SCH (21:00)
[2023-11-06] MEDS ORDERED: Atorvastatin 10 MG Tab PO SCH (21:00)
[2023-11-06] MEDS ORDERED: Tamsulosin HCl 0.4 MG Cap PO SCH (21:00)
--- NOTE | 2023-11-06 21:04 | NUR ---
PT NPO. DUE FOR SEVERAL PO 2100 MEDICATIONS. PT ABLE TO BE AROUSED BUT ONLY BRIEFLY AND QUICKLY FALLS BACK TO SLEEP. VERY SLURRED SPEECH WHEN AWAKE, DIFFICULT TO DISCERN WHAT HE IS SAYING. PER REPORT, CHOKED ON PO MEDICATION THIS MORNING. UNABLE TO SAFELY ADMINISTER PO MEDICATIONS AT THIS TIME. CONTINUING TO MONITOR.
[2023-11-07 00:50] VITALS: BP 154/54
[2023-11-07] MEDS ORDERED: Acetaminophen 325 MG TABLET PO PRN (01:55)
--- NOTE | 2023-11-07 02:20 | NUR ---
CALLED AND SPOKE WITH RESIDENT DR. BROWN. PT APPEARS TO BE IN PAIN AND BRIEFLY NOTED HE WAS HAVING BACK PAIN. DR. BROWN ORDERED PO TYLENOL FOR MANAGEMENT. PT IS MORE ALERT NOW AND IS ABLE TO ANSWER QUESTIONS AND STAY AWAKE FOR LONGER PERIODS OF TIME. SAT UPRIGHT AND GAVE TYLENOL WITH APPLESAUCE. PT WAS ABLE TO SWALLOW AND FOLLOW ACCOMPANYING INSTRUCTIONS. DID NOTE SOME MILD GAGGING SOUNDS BUT PT WAS ABLE TO SWALLOW PILLS WITH MINIMAL DIFFICULTY. REPORTS BEING COMFORTABLE AFTER ADMINISTRATION. CONTINUING TO MONITOR.
[2023-11-07 04:06] LABS: Hematocrit 39.4 % (37.0-53.0); Hemoglobin 12.9 g/dL (13.5-17.5)
--- NOTE | 2023-11-07 04:12 | NUR ---
SHIFT SUMMARY. PT DOING MUCH BETTER THAN AT BEGINNING OF SHIFT. PT REMAINS CONFUSED BUT IS MUCH MORE ALERT, SPEECH IS MUCH LESS SLURRED. PT ABLE TO TELL ME HIS NAME/, ABLE TO FOLLOW COMMANDS, ABLE TO MAKE NEEDS KNOWN. ABLE TO TELL ME WHERE HE IS AND WHO THE PRESIDENT IS WITH A COUPLE OF HINTS. APPEARS TO UNDERSTAND MORE AND BECOME MORE ORIENTED WITH SOME EDUCATION. PT REQUESTED FOOD THIS MORNING AND AFTER BEING SAT UP TO 90 DEGREES, WAS ABLE TO FEED HIMSELF A PUDDING CUP WITH NO ASSISTANCE. SWALLOWED WITHOUT DIFFICULTY. PT REPORTED SOME BACK PAIN THAT HAS BEEN ALLEVIATED WITH REPOSITIONING AND PO PRN TYLENOL. TELE ON THROUGHOUT SHIFT, RUNNING PACED WITH NO EVENTS OR ACUTE CHANGES THUS FAR. HAS MAINTAINED SATURATION >92% ON ROOM AIR THROUGHOUT SHIFT. SODIUM BICARB HAS BEEN RUNNING THROUGHOUT SHIFT PER EMAR. VITALS HAVE BEEN STABLE. Q2 HOURS REPOSITIONS. BED LOCKED IN LOWEST POSITION. CALL LIGHT LEFT WITHIN REACH. CONTINUING TO MONITOR.
[2023-11-07 04:25] LABS: Albumin, Blood 2.5 g/dL (3.4-5.0); Anion Gap 7 mmol/L (6-16); Blood Urea Nitrogen 85 mg/dL (8-24); Bun/Creatinine Ratio 23.2 (12.0-20.0); CO2, Blood 24 mmol/L (21-32); Calcium, Blood 8.1 mg/dL (8.5-10.1); Chloride, Blood 109 mmol/L (98-108); Creatinine, Blood 3.67 mg/dL (0.60-1.20); Glomerular Filtration Rate 16 (60-); Glucose, Blood 183 mg/dL (70-99); Magnesium, Blood 2.2 mg/dL (1.6-2.4); Potassium, Blood 4.2 mmol/L (3.5-5.5); Sodium, Blood 140 mmol/L (136-145)
[2023-11-07 04:29] VITALS: BP 156/57
[2023-11-07] MEDS ORDERED: NS 1,000 ML IV SCH (05:25)
[2023-11-07] MEDS ORDERED: Pantoprazole Sodium 40 MG Tab PO SCH (06:00)
[2023-11-07] MEDS ORDERED: Venlafaxine HCl 75 MG CapCR PO SCH (09:00)
[2023-11-07 09:03] VITALS: BP 132/56
[2023-11-07] MEDS ORDERED: Apixaban 5 MG Tab PO ONE (10:35)
[2023-11-07 12:07] VITALS: BP 116/56
[2023-11-07 16:17] VITALS: BP 146/53
--- NOTE | 2023-11-07 18:23 | NUR ---
ASSUMED CARE OF PT AT 0700 THIS AM. NO ACUTE CHANGES T/O THE SHIFT. SEE DOCUMENTED VS AND ASSESSMENT. PT SOMULENT THIS AM, BUT MORE AWAKE AND ALERT IN THE AFTERNOON AND EVENING. HOSPITAL STAFF WAS ABLE TO REPLACE THE BATTERY IN THE PT'S HEARING AID AND THE PT BECAME MUCH MORE INTERACTIVE. PT ABLE TO FEED HIMSELF AND SWALLOW WITHOUT ANY DIFFICULTY NOTED. PLAN TO MONITOR PT AND LABS, DISCHARGE SOON PER DOCTORS. PT IS ABLE TO USE CALL LIGHT AND MAKE NEEDS KNOWN. PT HAS HAD NO COMPLAINTS OR CONCERNS. CALL LIGHT IN REACH, BE IN LOWEST LOCKED POSITION, BED ALARM ON FOR SAFETY. WILL CONTINUE MONITOR AND GIVE REPORT TO NOC SHIFT RN.
[2023-11-07 19:57] VITALS: BP 130/104
[2023-11-07] MEDS ORDERED: Apixaban 5 MG Tab PO SCH (21:00)
[2023-11-08 00:07] VITALS: BP 151/51
[2023-11-08 03:33] VITALS: BP 167/40
--- NOTE | 2023-11-08 04:04 | NUR ---
SHIFT SUMMARY. PT HAS BEEN DOING WELL OVER COURSE OF SHIFT, NO ACUTE CHANGES. PT AOX3-4, PLEASANT, COOPERATIVE WITH CARE, CALLS APPROPRIATELY, ABLE TO MAKE NEEDS KNOWN. HAS BEEN ABLE TO SLEEP SPORADICALLY THROUGHOUT COURSE OF SHIFT. TELE ON THROUGHOUT SHIFT, RUNNING PACED RHYTHM WITH NO CHANGES OR ACUTE EVENTS THUS FAR. VITALS HAVE BEEN STABLE. CONTINUES TO MAINTAIN ADEQUATE SATURATION ON ROOM AIR. SCHNEIDER REMAINS IN PLACE, DRAINING WELL TO GRAVITY WITH NO COMPLAINTS OF PAIN OR DISCOMFORT. SOME COMPLAINTS OF MILD BACK PAIN THAT HAVE THUS FAR BEEN ALLEVIATED WITH REPOSITIONING AND PRN TYLENOL. PT IS MUCH MUCH MORE ALERT THROUGHOUT THIS SHIFT THAN PREVIOUS SHIFT WITH THIS RN. VERY [place]. FLUIDS RUNNING THROUGHOUT SHIFT PER EMAR. BED LOCKED IN LOWEST POSITION. CALL LIGHT LEFT WITHIN REACH. CONTINUING TO MONITOR.
[2023-11-08 04:25] LABS: Hematocrit 37.7 % (37.0-53.0); Hemoglobin 11.9 g/dL (13.5-17.5)
[2023-11-08 04:53] LABS: Albumin, Blood 2.5 g/dL (3.4-5.0); Anion Gap 6 mmol/L (6-16); Blood Urea Nitrogen 70 mg/dL (8-24); Bun/Creatinine Ratio 22.6 (12.0-20.0); CO2, Blood 25 mmol/L (21-32); Calcium, Blood 8.1 mg/dL (8.5-10.1); Chloride, Blood 111 mmol/L (98-108); Glomerular Filtration Rate 20 (60-); Glucose, Blood 113 mg/dL (70-99); Magnesium, Blood 2.1 mg/dL (1.6-2.4); Phosphorus, Blood 4.7 mg/dL (2.5-4.9); Sodium, Blood 142 mmol/L (136-145)
[2023-11-08] MEDS ORDERED: NS 1,000 ML IV SCH (06:05)
[2023-11-08 07:34] VITALS: BP 168/49
[2023-11-08] MEDS ORDERED: Tamsulosin HCl 0.4 MG Cap PO SCH (08:10)
[2023-11-08 13:06] VITALS: BP 173/62
--- NOTE | 2023-11-08 14:46 | NUR ---
DISCHARGE SUMMARY PT DISCHARGED HOME W/DAUGHTER, BELONGINGS SENT HOME. IV REMOVED. EDUCATION, MEDICATION LIST, AND FOLLOW-UP APPOINTMENT DISCUSSED WITH PT AND DAUGHTER.
== END 2023-11-08 13:15 | disposition home or self-care (01) | DRG 682 ==
LOC: ER 21:43 → PCU 21:44
PROVIDERS: Internal Medicine Nephrology; Student in an Organized Health Care Education/Training Program; ADMIT Internal Medicine
DX: N17.9 Acute kidney failure, unspecified (principal); G92.8 Other toxic encephalopathy; E87.21 Acute metabolic acidosis; I50.32 Chronic diastolic (congestive) heart failure; I13.0 Hypertensive heart and chronic kidney disease with heart failure and stage 1 through stage 4 chronic kidney disease, or unspecified chronic kidney disease; N18.4 Chronic kidney disease, stage 4 (severe); K21.9 Gastro-esophageal reflux disease without esophagitis; I25.10 Atherosclerotic heart disease of native coronary artery without angina pectoris; E87.5 Hyperkalemia; G47.33 Obstructive sleep apnea (adult) (pediatric); R55 Syncope and collapse; I48.0 Paroxysmal atrial fibrillation; E11.22 Type 2 diabetes mellitus with diabetic chronic kidney disease; E86.9 Volume depletion, unspecified; E88.09 Other disorders of plasma-protein metabolism, not elsewhere classified; N40.0 Benign prostatic hyperplasia without lower urinary tract symptoms; E86.0 Dehydration; D63.1 Anemia in chronic kidney disease; E21.3 Hyperparathyroidism, unspecified; Z98.890 Other specified postprocedural states; Z95.0 Presence of cardiac pacemaker; Z93.3 Colostomy status; Z95.2 Presence of prosthetic heart valve; Z95.1 Presence of aortocoronary bypass graft; Z79.899 Other long term (current) drug therapy; Z79.51 Long term (current) use of inhaled steroids; Z88.2 Allergy status to sulfonamides; Z88.0 Allergy status to penicillin; Z11.52 Encounter for screening for COVID-19
CPT/HCPCS: 0241U; 36415; 51702; 51798; 70450; 74176; 76770; 80048; 80053; 80069; 82803; 82947; 83735; 84100; 85014; 85018; 85025; 85610; 93005; 93010; 94760; 96361; 96361-59; 96374-59; 96375-59; 99285-25; A9270; G0103; J0612; J1815; J1940; J3010; J7030; J7070; J7799